=== PATIENT | male | born 1960 | race Caucasian/White ===

== ENCOUNTER 2021-02-10 17:32 | Emergency (ER) | payer MEDICAID ==
[2021-02-10] MEDS ORDERED: ONDANSETRON 4 MG/2 ML VIAL ONE (18:14)
[2021-02-10] MEDS ORDERED: MORPHINE 4 MG/ML SYR ONE (18:14)
--- NOTE | 2021-02-10 19:29 | RAD REPORT ---
EXAM DESCRIPTION: CT - Pelvis Wo Cont - 02/10/2021 6:44 pm CLINICAL HISTORY: pain from fall Fall, trauma, pain COMPARISON: No comparisons TECHNIQUE: All CT scans are performed using dose optimization technique as appropriate and may inclu de automated exposure control or mA/KV adjustment according to patient size. CT pelvis without contrast with sagittal and coronal reformatted images CT thoracic spine without contrast with sagittal and coronal reformatted images CT lumbar spine without contrast with sagittal and coronal reformatted images FINDINGS: Left total hip arthroplasty noted. There is atrophy noted of the left iliopsoas musculatur e relative to the right. A mild acute anterior wedge compression fracture affects the T12 vertebral body. Loss of vertebral dion dy height is estimated at 5-10%. No canal compromise seen. The paraspinal tissues are mildly thickene d. No lumbar spine fracture evident. There is evidence of a calcified disc herniation at L4-5. Chronic b ilateral spondylolysis is also noted L5-S1. No acute fracture of the bony pelvis seen. Sacroiliac joints are symmetric. There is very subtle shanta ical irregularity involving the S4 sacral segment which may represent a minimal sacral fracture. IMPRESSION: Mild acute wedge compression fracture affects the T12 vertebral body. No canal compromis e seen. Subtle fracture likely present involving the S4 sacral segment.
--- NOTE | 2021-02-10 19:42 | RAD REPORT ---
EXAM DESCRIPTION: RAD - Pelvis - 02/10/2021 6:44 pm CLINICAL HISTORY: PAIN COMPARISON: No comparisons FINDINGS: Left total hip arthroplasty is noted. No acute fracture or dislocation seen.
--- NOTE | 2021-02-10 19:43 | RAD REPORT ---
EXAM DESCRIPTION: RAD - Hip Right 2 View - 02/10/2021 6:44 pm CLINICAL HISTORY: PAIN Trauma, pain COMPARISON: No comparisons FINDINGS: No acute fracture or dislocation is seen.
--- NOTE | 2021-02-10 19:57 | ER ---
Nurse's Notes [facility] Name: Efrain Quezada Age: 60 yrs Sex: Male : 1960 Arrival Date: 02/10/2021 Time: 17:38 Bed 6 Private MD: Diagnosis: Fracture of sacrum;Wedge compression fracture of T11-T12 vertebra Presentation: 02/10 17:38 Chief complaint: EMS states: Pt slipped and fell while fishing at the [employer], landed ph on his bottom, denies head injury or LOC, c/o pain to mid back area, tailbone and R hip, hx of slipped disc, occurred at around 1300 today, pt states that he has been able to ambulate. Care prior to arrival: None. Mechanism of Injury: Fall from standing position. Trauma event details: Injury occurred in the [facility], Injury occurred: in a recreational area. Injury occurred: February 10, 2021. 17:38 Acuity: OVI 4 ph 17:38 Method Of Arrival: EMS: [facility] 17:46 Coronavirus screen: Client denies travel out of the [place] in the last 14 days. At this ph time, the client does not indicate any symptoms associated with coronavirus-19. Ebola Screen: No symptoms or risks identified at this time. Initial Sepsis Screen: Does the patient meet any 2 criteria? No. Patient's initial sepsis screen is negative. Does the patient have a suspected source of infection? No. Patient's initial sepsis screen is negative. Risk Assessment: Do you want to hurt yourself or someone else? Patient reports no desire to harm self or others. Onset of symptoms was February 10, 2021. Triage Assessment: 17:46 General: Appears in no apparent distress. uncomfortable, well groomed, Behavior is ph calm, cooperative, appropriate for age. Pain: Complains of pain in lumbar area and sacrum and right hip. Neuro: Level of Consciousness is awake, alert, obeys commands, Oriented to person, place, time, situation. Cardiovascular: Capillary refill < 3 seconds in bilateral fingers Patient's skin is warm and dry. Respiratory: Airway is patent Respiratory effort is even, unlabored, Respiratory pattern is regular, symmetrical. GI: Reports nausea, Patient currently denies abdominal pain, vomiting. Derm: Skin is intact, is healthy with good turgor, Skin is pink, warm \T\ dry. Trauma Activation: Not Applicable Physician: ED Physician; Name: ; Notified At: ; Arrived At: Physician: General Surgeon; Name: ; Notified At: ; Arrived At: Physician: Radiology; Name: ; Notified At: ; Arrived At: Physician: Respiratory; Name: ; Notified At: ; Arrived At: Physician: Lab; Name: ; Notified At: ; Arrived At: Historical: - Allergies: 17:45 PENICILLINS; ph 17:45 Sulfa (Sulfonamide Antibiotics); ph - Home Meds: 17:45 Metoprolol Tartrate Oral [Active]; Lisinopril Oral [Active]; Famotidine Oral [Active]; ph Hydrochlorothiazide Oral [Active]; - PMHx: 17:45 CVA; Hypertension; ph - PSHx: 17:45 L hip replacement; ph - Immunization history:: Adult Immunizations unknown. - Social history:: Smoking status: Patient denies any tobacco usage or history of. Screenin:45 Abuse screen: Denies threats or abuse. Denies injuries from another. Nutritional ph screening: No deficits noted. Tuberculosis screening: No symptoms or risk factors identified. Fall Risk None identified. Assessment: 18:15 General: SEE TRIAGE ASSESSMENT. ph 19:15 Reassessment: Patient appears in no apparent distress at this time. Patient and/or wh family updated on plan of care and expected duration. Pain level reassessed. Patient is alert, oriented x 3, equal unlabored respirations, skin warm/dry/pink. 20:20 Reassessment: Patient appears in no apparent distress at this time. Patient and/or wh family updated on plan of care and expected duration. Pain level reassessed. Patient is alert, oriented x 3, equal unlabored respirations, skin warm/dry/pink. Vital Signs: 17:46 BP 143 / 96; Pulse 102; Resp 18; Temp 97.9; Pulse Ox 97% on R/A; Weight 72.57 kg; ph Height 5 ft. 9 in. (175.26 cm); Pain 7/10; 19:30 BP 125 / 79; Pulse 88; Resp 18; Pulse Ox 98% on R/A; wh 17:46 Body Mass Index 23.63 (72.57 kg, 175.26 cm) ph ED Course: 17:38 Patient arrived in ED. ph 17:40 Imer Schmitt PA is PHCP. cp 17:40 Kimani Aguilar MD is Attending Physician. cp 17:42 Triage completed. ph 17:42 Gertrude Morales RN is Primary Nurse. ph 17:45 Arm band placed on Patient placed in an exam room. ph 17:45 Inserted saline lock: 20 gauge in right antecubital area, using aseptic technique. kj1 17:47 Patient has correct armband on for positive identification. Bed in low position. Call ph light in reach. Side rails up X 1. Pulse ox on. NIBP on. Door closed. Noise minimized. Warm blanket given. 18:43 CT Lumbar Spine Wo Con In Process Unspecified. EDMS 18:43 XRAY Pelvis In Process Unspecified. EDMS 18:43 XRAY Hip RIGHT 2 view In Process Unspecified. EDMS 18:44 CT Thoracic Spine Wo Cont In Process Unspecified. EDMS 18:44 CT Pelvis wo Cont In Process Unspecified. EDMS 20:24 No provider procedures requiring assistance completed. IV discontinued, intact, wh bleeding controlled, No redness/swelling at site. Administered Medications: 18:00 Drug: Zofran (Ondansetron) 4 mg Route: IVP; Site: right antecubital; ph 19:12 Follow up: Response: No adverse reaction ph 18:02 Drug: morphine 4 mg Route: IVP; Site: right antecubital; ph 19:12 Follow up: Response: No adverse reaction; Pain is decreased ph Outcome: 19:56 Discharge ordered by MD. cp 20:25 Discharged to home via wheelchair. 20:25 Condition: stable 20:25 Discharge instructions given to patient, Instructed on discharge instructions, follow up and referral plans. no drinking with medication, no driving heavy equipment, medication usage, POC Demonstrated understanding of instructions, follow-up care, medications, POC Prescriptions given X 1, Pt refused Ibupofen 20:25 Patient left the ED. Signatures: Dispatcher [employer] EDMS Gertrude Morales, RN RN Imer Schmitt PA PA cp Habalo, Winsy, RN RN Kelli Tabares [email or web address]
--- NOTE | 2021-02-10 19:57 | EDPHYS ---
Physician Documentation [facility] Name: Efrain Quezada Age: 60 yrs Sex: Male : 1960 Arrival Date: 02/10/2021 Time: 17:38 Bed 6 Private MD: ED Physician Kimani Aguilar HPI: 02/10 17:50 This 60 yrs old Male presents to ER via EMS with complaints of Fall Injury. cp 17:50 Details of fall: The patient fell from an upright position, while walking. cp 17:50 Onset: The symptoms/episode began/occurred just prior to arrival. Associated injuries: cp The patient sustained upper back injury, pain, tenderness, injury to the low back, pain, tenderness, right hip, painful injury. Severity of symptoms: in the emergency department the symptoms are unchanged, despite EMS interventions. Patient reports he was walking and slipped while finishing. Both legs slipped out from underneath him causing him to land onto buttocks. Historical: - Allergies: 17:45 PENICILLINS; ph 17:45 Sulfa (Sulfonamide Antibiotics); ph - Home Meds: 17:45 Metoprolol Tartrate Oral [Active]; Lisinopril Oral [Active]; Famotidine Oral [Active]; ph Hydrochlorothiazide Oral [Active]; - PMHx: 17:45 CVA; Hypertension; ph - PSHx: 17:45 L hip replacement; ph - Immunization history:: Adult Immunizations unknown. - Social history:: Smoking status: Patient denies any tobacco usage or history of. ROS: 18:00 Constitutional: Negative for body aches, chills, fever, poor PO intake. cp 18:00 Eyes: Negative for injury, pain, redness, and discharge. cp 18:00 Neck: Negative for pain with movement, pain at rest, stiffness, bony tenderness. 18:00 Cardiovascular: Negative for chest pain. 18:00 Respiratory: Negative for cough, shortness of breath, wheezing. 18:00 Abdomen/GI: Negative for abdominal pain, nausea, vomiting, and diarrhea. 18:00 Back: Positive for pain at rest, pain with movement, of the thoracic area, lumbar area and sacrum. 18:00 MS/extremity: Positive for pain, of the right hip, Negative for decreased range of motion, deformity. 18:00 Neuro: Negative for altered mental status, dizziness, headache, loss of consciousness, weakness. 18:00 All other systems are negative. Exam: 18:05 Constitutional: The patient appears in no acute distress, alert, awake, cp non-diaphoretic, non-toxic, well developed, well nourished, uncomfortable. 18:05 Head/Face: Normocephalic, atraumatic. cp 18:05 Neck: C-spine: vertebral tenderness, is not appreciated, crepitus, is not appreciated, ROM/movement: is normal, is supple, without pain, no range of motions limitations. 18:05 Chest/axilla: Inspection: normal, Palpation: is normal, no crepitus, no tenderness. 18:05 Cardiovascular: Rate: tachycardic, Rhythm: regular. 18:05 Respiratory: the patient does not display signs of respiratory distress, Respirations: normal, no use of accessory muscles, no retractions, labored breathing, is not present, Breath sounds: are clear throughout, no decreased breath sounds, no stridor, no wheezing. 18:05 Abdomen/GI: Inspection: abdomen appears normal, Palpation: abdomen is soft and non-tender, in all quadrants. 18:05 Back: pain, that is moderate, ROM is painful, with all movement, vertebral tenderness, is appreciated at T12, L1 and sacrum. 18:05 Musculoskeletal/extremity: Extremities: grossly normal except: noted in the right hip: pain, There is no evidence of decreased ROM, deformity, ROM: limited passive range of motion due to pain, in the right hip. 18:05 Neuro: Orientation: to person, place \T\ time. Mentation: is normal, Motor: moves all fours, strength is normal, Sensation: is normal. Vital Signs: 17:46 BP 143 / 96; Pulse 102; Resp 18; Temp 97.9; Pulse Ox 97% on R/A; Weight 72.57 kg; ph Height 5 ft. 9 in. (175.26 cm); Pain 7/10; 19:30 BP 125 / 79; Pulse 88; Resp 18; Pulse Ox 98% on R/A; wh 17:46 Body Mass Index 23.63 (72.57 kg, 175.26 cm) ph MDM: 17:55 Patient medically screened. cp 19:55 Data reviewed: vital signs, nurses notes, radiologic studies, CT scan, plain films. cp 19:55 Counseling: I had a detailed discussion with the patient and/or guardian regarding: the cp historical points, exam findings, and any diagnostic results supporting the discharge/admit diagnosis, radiology results, the need for outpatient follow up, a family practitioner, to return to the emergency department if symptoms worsen or persist or if there are any questions or concerns that arise at home. Response to treatment: the patient's symptoms have markedly improved after treatment, VSS. Pain markedly improved. Discussed results of radiology studies, and as a result, I will discharge patient. 02/10 17:41 Order name: XRAY Pelvis; Complete Time: 19:52 cp 02/10 17:41 Order name: XRAY Hip RIGHT 2 view; Complete Time: 19:52 cp 02/10 17:56 Order name: CT Lumbar Spine Wo Con cp 02/10 17:56 Order name: CT Thoracic Spine Wo Cont cp 02/10 17:56 Order name: CT Pelvis wo Cont; Complete Time: 19:35 cp 02/10 17:41 Order name: IV; Complete Time: 17:47 cp Administered Medications: 18:00 Drug: Zofran (Ondansetron) 4 mg Route: IVP; Site: right antecubital; ph 19:12 Follow up: Response: No adverse reaction ph 18:02 Drug: morphine 4 mg Route: IVP; Site: right antecubital; ph 19:12 Follow up: Response: No adverse reaction; Pain is decreased ph Disposition: 02/10/21 19:56 Discharged to Home. Impression: Fracture of sacrum, Wedge compression fracture of T11-T12 vertebra. - Condition is Stable. - Discharge Instructions: Spinal Compression Fracture. - Prescriptions for Tylenol- Codeine #3 300-30 mg Oral Tablet - take 2 tablets by ORAL route every 8-12 hours As needed; 20 tablet. Ibuprofen 800 mg Oral Tablet - take 1 tablet by ORAL route every 8 hours As needed take with food; 30 tablet. - Medication Reconciliation Form, Thank You Letter, Antibiotic Education, Prescription Opioid Use form. - Follow up: Private Physician; When: 2 - 3 days; Reason: Recheck today's complaints. - Problem is new. - Symptoms have improved. Addendum: 02/12/2021 05:22 Co-signature as Attending Physician, Kimani Aguilar MD I agree with the assessment and t w4 plan of care. Signatures: Dispatcher [employer] EDWV Gertrude Morales, RN RN Imer Miller PA PA cp Habalo, Winsy RN RN Kimani Aguilar MD MD tw4 Corrections: (The following items were deleted from the chart) 02/10 18:04 17:41 Lumbar Spine 3 Views+[id number] ordered. [facility] EDWV 20:25 19:56 02/10/2021 19:56 Discharged to Home. Impression: Fracture of sacrum; Wedge wh compression fracture of T11-T12 vertebra. Condition is Stable. Forms are Medication Reconciliation Form, Thank You Letter, Antibiotic Education, Prescription Opioid Use. Follow up: Private Physician; When: 2 - 3 days; Reason: Recheck today's complaints. Problem is new. Symptoms have improved. cp
[2021-02-10 21:18] VITALS: TEMP 97.9
[2021-02-10 21:19] VITALS: BP 125/79; O2SAT 98
--- NOTE | 2021-02-13 10:22 | RAD REPORT ---
EXAM DESCRIPTION: CT - Thoracic Spine W/o Cont - 02/10/2021 6:44 pm CLINICAL HISTORY: Pain from fall Fall, trauma, pain COMPARISON: No comparisons TECHNIQUE: All CT scans are performed using dose optimization technique as appropriate and may inclu de automated exposure control or mA/KV adjustment according to patient size. CT pelvis without contrast with sagittal and coronal reformatted images CT thoracic spine without contrast with sagittal and coronal reformatted images CT lumbar spine without contrast with sagittal and coronal reformatted images FINDINGS: Left total hip arthroplasty noted. There is atrophy noted of the left iliopsoas musculatur e relative to the right. A mild acute anterior wedge compression fracture affects the T12 vertebral body. Loss of vertebral dion dy height is estimated at 5-10%. No canal compromise seen. The paraspinal tissues are mildly thickene d. No lumbar spine fracture evident. There is evidence of a calcified disc herniation at L4-5. Chronic b ilateral spondylolysis is also noted L5-S1. No acute fracture of the bony pelvis seen. Sacroiliac joints are symmetric. There is very subtle shanta ical irregularity involving the S4 sacral segment which may represent a minimal sacral fracture. IMPRESSION: Mild acute wedge compression fracture affects the T12 vertebral body. No canal compromis e seen. Subtle fracture likely present involving the S4 sacral segment.
== END 2021-02-10 20:25 | disposition home or self-care (01) ==
LOC: ER 17:32
DX: S32.10XA Unspecified fracture of sacrum, initial encounter for closed fracture (principal); S22.080A Wedge compression fracture of T11-T12 vertebra, initial encounter for closed fracture; W18.39XA Other fall on same level, initial encounter; Y93.01 Activity, walking, marching and hiking; Y92.9 Unspecified place or not applicable; I10 Essential (primary) hypertension; Z88.0 Allergy status to penicillin; Z88.2 Allergy status to sulfonamides; Z86.73 Personal history of transient ischemic attack (TIA), and cerebral infarction without residual deficits; Z96.642 Presence of left artificial hip joint
CPT/HCPCS: 72131; 72128; 72192; 72170; 73502; J2405; 96374; 96375; 99284

== ENCOUNTER 2021-04-14 01:10 | Observation (INO) | payer MEDICAID ==
--- OUTSIDE RECORDS SUMMARY | 2021-04-14 01:17 | XMS REPORT | Continuity of Care Document ---
:1960 Author Organization Formerly [facility] t Address [address] [place] [address] Care Team Providers Name Role Phone Ramírez ALMEIDA APN Primary Care Physician Manoj ESTEVEZ, L Attending Clinician WANDA Attending Clinician Unavailable D'CHICAS Attending Clinician Unavailable KOSCIUK Admitting Clinician Unavailable TARAPASADE Admitting Clinician Unavailable Advance Directives Directive Decision Effective Date Termination Date Comments Sour ce Yes N/A [facility] Problems Condition Condition Condition Status Onset Resolution Last Treating Co mments Source Name Details Category Date Date Treatment Clinician Date Shortness Problem JOHN U of breath [facility] Injury of Problem JOHN U right S [facility] shoulder [facility] th Blister of Problem MAGO TU right S [facility] shoulder Elizabe without th infection Acute hip Problem JOHN U pain [facility] th Chronic Problem [facility] renal S [facility] impairment Elizab e th Hypokalemi Problem MAGO TU a S [facility] th Right Problem [facility]RI[facility]U inguinal S [facility] pain Elizabe th Peripheral Problem MAGO TU vascular S St. disease Elizabe th Hydrocele Problem JOHN U S [facility] th Inguinal Problem [facility] hernia [facility] th Hydrocele Problem JOHN U in adult S [facility] El[facility] th Abnormal Problem [facility] electrocar S St[facility] diography Elizabe th Chronic Problem [facility]RIST[facility] kidney S St[facility] disease Eli Problem Condition JOHN U S - [facility] Allergies, Adverse Reactions, Alerts Allergy Allergy Status Severity Reaction(s) Onset Inactive Treating Comm ents Source Name Type Date Date Clinician Penicill Allergy Active 2018-12 [facility] in to 0-[address] substanc 00:00: Elizabe e 00 Sulfonam Allergy Active 2018-12 [facility]U shaniqua to 0-[address] substanc 00:00: Elizabe e Social History Social Habit Start Date Stop Date Quantity Comments Source Sex Assigned At 1960 [address] 00:00:00 00:00:00 Rhiannon Smoking Status Start Date Stop Date Source Smokes tobacco daily (finding) 2019-11-12 00:49:00 [facility] Medications Ordered Filled Start Stop Current Ordering Indication Dosage Frequency Signature Comments Components Source Medication Medication Date Date Medication? Clinician (SIG) Name Name Albuterol 2018-12 No 2 [facility]RI[facility]U (Proair Hfa 2-[address] Inh) 200 15:10: Elizabe Puff/8.5 Gm 00 AERO Acetaminoph 2018-12 No 1 JOHN U en/Codeine 0-12 S - Phosphate 10:32: [facility] Acetaminoph 2018-12 No 1 JOHN U en/Codeine 0-12 S - Phosphate 10:32: [facility] [facility] Cyclobenzap 2019-0 No 10mg JOHN U rine Hcl 5-12 S - 01:26: [facility] [facility] Cyclobenzap 20190 No 10mg JOHN U rine Hcl 5-12 S - 01:26: [facility] [facility] Hydrochloro 2017-12 No 25mg JOHN U thiazide 2- S 03:28: [facility] Metoprolol 2017-12 No 50mg [facility] Tartrate 2- S 03:28: [facility] Ranitidine 2017-12 No 300mg JOHN U Hcl 2- S 03:28: [facility] [place] [facility] Hydrochloro 2017-12 No 25mg JOHN U thiazide 2- S - 03:28: [facility] Metoprolol 2017-12 No 50mg CH[facility]U Tartrate 01-03 S :28: [facility] [place] [facility] Ranitidine 2017-12 No 300mg JOHN U Hcl 01-03 S :28: [facility] [place] [facility] Hydrochloro No 25mg CH[facility]STU thiazide S - [facility] Metoprolol No 50mg [facility]U Tartrate S - [facility] Ranitidine No 300mg [facility]U Hcl S - [facility] Hydrochloro No 25mg [facility] thiazide S - [facility] Metoprolol No 50mg [facility]U Tartrate S - [facility] Ranitidine No 300mg [facility] Hcl S - [facility] Fenofibrate No 120mg [facility] (Fenoglide) S St. 120 Mg Elizabe TABLET th Hydrochloro No 25mg CHRISTU thiazide S St. (Hydrodiuri Elizabe l) 25 Mg th TAB Lisinopril No 10mg [facility] (Zestril) S St. 10 Mg TAB Elizabe th Metoprolol No 50mg [facility]U Tartrate S St. (Lopressor) Elizabe 50 Mg TAB th Ranitidine No 300mg CHRISTU Hcl S St. (Zantac) Elizabe 300 Mg TAB th Doxycycline No 100mg [facility] Monohydrate S St. (Doxycyclin Elizabe e) 100 Mg th CAPSULE Fenofibrate No 120mg CHRISTU (Fenoglide) S St. 120 Mg Elizabe TABLET th Hydrochloro No 25mg CHRISTU thiazide S St. (Hydrodiuri Elizabe l) 25 Mg th TAB Lisinopril No 10mg CHRISTU (Zestril) S St. 10 Mg TAB Elizabe th Metoprolol No 50mg CHRISTU Tartrate S St. (Lopressor) Elizabe 50 Mg TAB th Ranitidine No 300mg CHRISTU Hcl S St. (Zantac) Elizabe 300 Mg TAB th Vital Signs Vital Name Observation Time Observation Value Comments Source Body Temperature 2019-11-12 16:37:00 98.2 [degF] [facility] [place] Body Temperature 2019-11-12 07:53:00 97.9 [degF] [facility] [place] Weight 2019-11-11 10:00:00 240 [lb_av] [facility] [place] BMI (Body Mass 2019-11-11 10:00:00 35.4 kg/m2 [facility] St. Index) [place] Body Temperature 2019-10-11 16:26:00 98.8 [degF] [facility] Heart Rate 2019-10-11 16:26:00 82 /min [facility] Respiratory rate 2019-10-11 16:26:00 18 /min [facility] BP Systolic 2019-10-11 16:26:00 156 mm[facility]Hg[facility] Di[facility] 2019-10-11 16:26:00 112 mm[Hg] [facility] Heart Rate 2019-10-11 15:50:00 82 /min [facility] Respiratory rate 2019-10-11 15:50:00 18 /min [facility] BP Systolic 2019-10-11 15:50:00 156 mm[Hg] [facility] BP Diastolic 2019-10-11 15:50:00 112 mm[Hg] [facility] Weight 2019-10-11 15:50:00 243 [lb_av] [facility] BMI (Body Mass 2019-10-11 15:50:00 35.9 kg/m2 [facility] Index) [facility] Heart Rate 2019-09-11 10:12:00 50 /min [facility] Respiratory rate 2019-09-11 10:12:00 18 /min [facility] BP Systolic 2019-09-11 10:12:00 124 mm[Hg] [facility] BP Diastolic 2019-09-11 10:12:00 70 mm[Hg] [facility] Body Temperature 2019-09-11 07:55:00 98.2 [degF] [facility] Weight 2019-09-11 07:55:00 250 [lb_av] [facility] BMI (Body Mass 2019-09-11 07:55:00 36.9 kg/m2 [facility] Index) [facility] Procedures Procedure Date / Time Performing Clinician Source Performed Hydrocelectomy 2019-11-11 00:00:[address] [place] X-ray of chest, two views 2019-11-11 00:00:00 [facility] ECG (electrocardiogram) 2019-10-11 00:00:00 [facility] ECG (electrocardiogram) 2019-10-07 00:00:00 [facility] Moderate level 2019-10-07 00:00:00 ARNIE singer established patient [facility] office visit US EXAM SCROTUM 2019-09-15 00:00:00 [facility] VASCULAR STUDY 2019-09-15 00:00:00 [facility] EMERGENCY DEPT VISIT 2019-09-15 00:00:00 [facility] US scrotum and contents 2019-09-15 00:00:00 [facility] Limited duplex scan of 2019-09-15 00:00:00 MAGO OVIEDO [facility] renal artery [facility] ROUTINE VENIPUNCTURE 2019-09-11 00:00:[address] [facility] [address] ABD & PELV W/CONTRAST 2019-09-11 00:00:00 [facility] US EXAM SCROTUM 2019-09-11 00:00:00 [facility] METABOLIC PANEL TOTAL CA 2019-09-11 00:00:00 [facility] URINALYSIS AUTO W/O SCOPE 2019-09-11 00:00[facility] W/AUTO DIFF 2019-09-11 00:00:00 [facility] WBC [facility] VASCULAR STUDY 2019-09-11 00:00:00 ARNIE singer [facility] EMERGENCY DEPT VISIT 2019-09-11 00:00:00 JOSE Abdul [facility] Locm 300-399mg/ml 2019-09-11 00:00:00 ARNIE Abdul iodine,1ml [facility] Computed tomography of 2019-09-11 00:00:00 MAGO Abdul abdomen and pelvis with [facility] contrast US scrotum and contents 2019-09-11 00:00:00 SHERRYI PATRICIA Abdul [facility] Limited duplex scan of 2019-09-11 00:00:00 MAGO Abdul renal artery [facility] Venipuncture 2019-09-10 00:00:00 ARNIE singer [facility] Moderate level 2019-08-30 00:00:00 ARNIE singer established patient [facility] office visit Plan of Care Planned Activity Planned Date Details Comments Source Goal Patient referral [code = SHERRY Abdul [id number] ] [facility] Goal Patient referral [code = SHERRY Abdul [id number] ] [facility] Instructions Chronic Kidney Disease MAGO Abdul (DC) [facility] Instructions Groin Hernia Repair (DC) [facility] SULY [place] Instructions Peripheral Vascular ARNIE Abdul (Arterial) Disease (DC) [facility] Instructions Hernia Repair (DC) ARNIE Abdul [facility] Instructions Hydrocele/Varicocele JOSE Abdul (DC) [facility] Encounters Start End Encounter Admission Attending Care Care Encounter Source Date/Time Date/Time Type Type Clinicians Facility Department ID 2021-03-07 2021-03-07 Prep For BIPIN Aranda [id number] 00:00:00 00:00:00 Surgery Timi Berry SPECIALTY [id number] CARE [id number] CENTER AT [id number] [address] 2021-03-06 2021-03-06 Telephone BIPIN Aranda [id number] 00:00:00 00:00:00 Timi L SPECIALTY [id number] CARE [id number] CENTER AT [id number] [place] [facility] 2021-02-19 2021-02-19 Telephone Manoj [facility] [id number] 00:00:00 00:00:00 Timi L SPECIALTY [id number] CARE [id number] CENTER AT [id number] [place] [facility] 2019-11-11 2019-11-12 Departed EDDIE GAITAN [id number] [facility] 09:20:00 20:05:[address] 2019-11-09 2019-11-09 Registered EDDIE Abdul [id number] [facility] 14:04:00 14:04:[address] 2019-10-11 2019-10-11 Departed ELIZA Abdul [id number] [facility] 15:45:00 16:27:00 Emergency [place] [address] [address] Room [facility] 2019-10-07 2019-10-07 Registered ELIZA Abdul [id number] [facility] 07:53:00 07:53:00 Provider [facility] 03 [facility] 2019-09-15 2019-09-15 Departed ELIZA Abdul [id number] [facility] 13:45:00 15:55:00 Emergency [facility] 84 S - Room [facility] 2019-09-11 2019-09-11 Departed ELIZA Abdul [id number] [facility] 07:53:00 10:35:00 Emergency [facility] 33 S Room [facility] 2019-09-10 2019-09-10 Registered ELIZA Abdul [id number] [facility] 08:16:00 08:16:[address] [facility] 2019-08-30 2019-08-30 Registered ELIZA Abdul [id number] [facility] 08:02:00 08:02:[address] [facility] Results Test Description Test Time Test Comments Results Result Comments Source Automated blood leukocyte count (number/volume) 2019-11-12 0 5:44:00 Test Item Value Reference Range Interpretation Comme nts White Blood Count (test code = 6690-2) 13.9 10*3/uL [facility] automated count (number/volume) 2019-11-12 05:44:00 Test Item Value Reference Range Interpretation Comments Red Blood Count (test code = 4.46 10*6/uL 789-8) [facility] hemoglobin measurement (mass/volume)2019-11-12 05:44:00 Test Item Value Reference Range Interpretation Comments Hemoglobin (test code = 718-7) 13.3 g/dL [facility] ElizabethAutomated blood hematocrit (volume fraction)2019-11-12 05:44:00 Test Item Value Reference Range Interpretation Comments Hematocrit (test code = 4544-3) 41.5 % [facility] ElizabethAutomated erythrocyte mean corpuscular volume (MCV) kuiihpxxqpi2020-16-26 05:44:00 Test Item Value Reference Range Interpretation Comments Mean Corpuscular Volume (test code = 93 fL 787-2) [facility] ElizabethAutomated erythrocyte mean corpuscular hemoglobin (mass per erythrocyte)2019-11-12 05:44:00 Test Item Value Reference Range Interpretation Comments Mean Corpuscular Hemoglobin (test 29.8 pg code = 785-6) [facility] ElizabethAutomated erythrocyte mean corpuscular hemoglobin concentration measurement (mass/[id number] 05:44:00 Test Item Value Reference Range Interpretation Comments Mean Corpuscular Hemoglobin Concent 32.0 g/dL (test code = 786-4) [facility] ElizabethAutomated erythrocyte distribution width [id number] 05:44:00 Test Item Value Reference Range Interpretation Comments Red Cell Distribution Width (test code 13.5 % = 788-0) [facility] ElizabethAutomated blood platelet count (count/volume)2019-11-12 05:44:00 Test Item Value Reference Range Interpretation Comments Platelet Count (test code = 249 10*3/uL 777-3) [facility] ElizabethAutomated blood platelet mean volume [id number] 05:44:00 Test Item Value Reference Range Interpretation Comments Mean Platelet Volume (test code = 10.8 95551-8) [facility]Service comment [id number] 05:44:00 Test Item Value Reference Range Interpretation Comments Manual Differential (test code = ----- 8265-1) [facility] ElizabethManual blood segmented neutrophils/100 leukocytes 2019-11-12 05:44:00 Test Item Value Reference Range Interpretation Comments Neutrophils % (Manual) (test code = 73 % 769-0) [facility] ElizabethManual blood band neutrophils form/100 leukocytes 2019-11-12 05:44:00 Test Item Value Reference Range Interpretation Comments Band Neutrophils % (Manual) (test code 3 % = 764-1) [facility] ElizabethManual blood lymphocytes/100 [id number] 05:44:00 Test Item Value Reference Range Interpretation Comments Lymphocytes % (Manual) (test code = 17 % 737-7) [facility] ElizabethManual blood monocytes/100 [id number] 05:44:00 Test Item Value Reference Range Interpretation Comments Monocytes % (Manual) (test code = 6 % 744-3) [facility] ElizabethManual blood eosinophil count as percentage of total [id number] 05:44:00 Test Item Value Reference Range Interpretation Comments Eosinophils % (Manual) (test code = 1 % 714-6) [facility]Blood platelet detection by light [id number] 05:44:00 Test Item Value Reference Range Interpretation Comments Platelet Estimate (test code = Adequate 9317-9) [facility] ElizabethBlood large platelets detection by light microscopy 2019-11-12 05:44:00 Test Item Value Reference Range Interpretation Comments Large Platelets (test code = 61759-9) Present [facility] ElizabethBlood erythrocyte morphology finding identification 2019-11-12 05:44:00 Test Item Value Reference Range Interpretation Comments Red Blood Cell Morphology (test code = Normal 6742-1) [facility] ElizabethSerum or plasma sodium measurement (moles/volume) 2019-11-12 05:44:00 Test Item Value Reference Range Interpretation Comments Sodium Level (test code = 2951-2) 138 mmol/L [facility] ElizabethSerum or plasma potassium measurement (moles/volume) 2019-11-12 05:44:00 Test Item Value Reference Range Interpretation Comments Potassium Level (test code = 3.6 mmol/L 2823-3) [facility] ElizabethSerum or plasma chloride measurement (moles/volume) 2019-11-12 05:44:00 Test Item Value Reference Range Interpretation Comments Chloride Level (test code = 104 mmol/L 5-0) [facility] or plasma total carbon dioxide measurement (moles/volume)2019-11-12 05:44:00 Test Item Value Reference Range Interpretation Comments Carbon Dioxide Level (test code = 26 mmol/L 8-9) [facility] ElikavyabethSerum or plasma anion gap determination (moles/volume) 2019-11-12 05:44:00 Test Item Value Reference Range Interpretation Comments Anion Gap (test code = 88852-1) 12 [facility] [address] CarmenbethSerum or plasma urea nitrogen measurement (mass/volume) 2019-11-12 05:44:00 Test Item Value Reference Range Interpretation Comments Blood Urea Nitrogen (test code = 23 mg/dL 3094-0) [facility] CarmenbethSerum or plasma creatinine measurement (mass/volume) 2019-11-12 05:44:00 Test Item Value Reference Range Interpretation Comments Creatinine (test code = 2160-0) 1.8 mg/dL [facility] St[facility] CarmenbethGFR estimate [id number] 05:44:00 Test Item Value Reference Range Interpretation Comments Estimat Glomerular Filtration Rate 41 (test code = 77504-4) [facility] ElizabethSerum or plasma glucose measurement (mass/volume) 2019-11-12 05:44:00 Test Item Value Reference Range Interpretation Comments Glucose Level (test code = 2345-7) 111 mg/dL [facility] CarmenbethSerum or plasma calcium measurement (mass/volume) 2019-11-12 05:44:00 Test Item Value Reference Range Interpretation Comments Calcium Level (test code = 03275-9) 8.9 mg/dL [facility] ElizabethAutomated blood leukocyte count (number/volume)2019-11-12 05:44:00 Test Item Value Reference Range Interpretation Comments White Blood Count (test code = 13.9 10*3/uL 6690-2) [facility] ElizabethBlood erythrocytes automated count (number/volume) 2019-11-12 05:44:00 Test Item Value Reference Range Interpretation Comments Red Blood Count (test code = 4.46 10*6/uL 789-8) [facility] ElizabethBlood hemoglobin measurement (mass/volume)2019-11-12 05:44:00 Test Item Value Reference Range Interpretation Comments Hemoglobin (test code = 718-7) 13.3 g/dL [facility] ElizabethAutomated blood hematocrit (volume fraction)2019-11-12 05:44:00 Test Item Value Reference Range Interpretation Comments Hematocrit (test code = 4544-3) 41.5 % [facility] ElizabethAutomated erythrocyte mean corpuscular volume (MCV) [id number] 05:44:00 Test Item Value Reference Range Interpretation Comments Mean Corpuscular Volume (test code = 93 fL 787-2) [facility] ElizabethAutomated erythrocyte mean corpuscular hemoglobin (mass per erythrocyte)2019-11-12 05:44:00 Test Item Value Reference Range Interpretation Comments Mean Corpuscular Hemoglobin (test 29.8 pg code = 785-6) [facility] ElizabethAutomated erythrocyte mean corpuscular hemoglobin concentration measurement (mass/[id number] 05:44:00 Test Item Value Reference Range Interpretation Comments Mean Corpuscular Hemoglobin Concent 32.0 g/dL (test code = 786-4) [facility] ElizabethAutomated erythrocyte distribution width [id number] 05:44:00 Test Item Value Reference Range Interpretation Comments Red Cell Distribution Width (test code 13.5 % = 788-0) [facility] ElizabethAutomated blood platelet count (count/volume)2019-11-12 05:44:00 Test Item Value Reference Range Interpretation Comments Platelet Count (test code = 249 10*3/uL 777-3) [facility] ElizabethAutomated blood platelet mean volume [id number] 05:44:00 Test Item Value Reference Range Interpretation Comments Mean Platelet Volume (test code = 10.8 41784-7) [facility] Raquelervice comment 05:44:00 Test Item Value Reference Range Interpretation Comments Manual Differential (test code = ----- 8265-1) [facility] RhiannonManual blood segmented neutrophils/100 leukocytes 2019-11-12 05:44:00 Test Item Value Reference Range Interpretation Comments Neutrophils % (Manual) (test code = 73 % 769-0) [facility] ElikavyabemelonieManual blood band neutrophils form/100 leukocytes 2019-11-12 05:44:00 Test Item Value Reference Range Interpretation Comments Band Neutrophils % (Manual) (test code 3 % = 764-1) [facility] ElirashawnManual blood lymphocytes/100 [id number] 05:44:00 Test Item Value Reference Range Interpretation Comments Lymphocytes % (Manual) (test code = 17 % 737-7) [facility] ElikavyabemelonieManual blood monocytes/100 [id number] 05:44:00 Test Item Value Reference Range Interpretation Comments Monocytes % (Manual) (test code = 6 % 744-3) [facility] ElirashawnManual blood eosinophil count as percentage of total [id number] 05:44:00 Test Item Value Reference Range Interpretation Comments Eosinophils % (Manual) (test code = 1 % 714-6) [facility] RhiannonBlood platelet detection by light [id number] 05:44:00 Test Item Value Reference Range Interpretation Comments Platelet Estimate (test code = Adequate 9317-9) [facility] ElirashawnBlood large platelets detection by light microscopy 2019-11-12 05:44:00 Test Item Value Reference Range Interpretation Comments Large Platelets (test code = 44012-8) Present [facility] RhiannonBlood erythrocyte morphology finding identification 2019-11-12 05:44:00 Test Item Value Reference Range Interpretation Comments Red Blood Cell Morphology (test code = Normal 6742-1) [facility]NIE [facility]. Raquelerum or plasma sodium measurement (moles/volume) 2019-11-12 05:44:00 Test Item Value Reference Range Interpretation Comments Sodium Level (test code = 2951-2) 138 mmol/L [facility] ElizabethSerum or plasma potassium measurement (moles/volume) 2019-11-12 05:44:00 Test Item Value Reference Range Interpretation Comments Potassium Level (test code = 3.6 mmol/L 2823-3) [facility] ElizabethSerum or plasma chloride measurement (moles/volume) 2019-11-12 05:44:00 Test Item Value Reference Range Interpretation Comments Chloride Level (test code = 104 mmol/L 5-0) [facility] ElizabethSerum or plasma total carbon dioxide measurement (moles/volume)2019-11-12 05:44:00 Test Item Value Reference Range Interpretation Comments Carbon Dioxide Level (test code = 26 mmol/L 2027-9) [facility] ElizabethSerum or plasma anion gap determination (moles/volume) 2019-11-12 05:44:00 Test Item Value Reference Range Interpretation Comments Anion Gap (test code = 85295-8) [address] [facility] [address] ElikavyabethSerum or plasma urea nitrogen measurement (mass/volume) 2019-11-12 05:44:00 Test Item Value Reference Range Interpretation Comments Blood Urea Nitrogen (test code = 23 mg/dL 3094-0) [facility] CarmenbethSerum or plasma creatinine measurement (mass/volume) 2019-11-12 05:44:00 Test Item Value Reference Range Interpretation Comments Creatinine (test code = 2160-0) 1.8 mg/dL [facility]. MayelintrishGFR estimate [id number] 05:44:00 Test Item Value Reference Range Interpretation Comments Estimat Glomerular Filtration Rate 41 (test code = 56418-8) [facility] ElizabethSerum or plasma glucose measurement (mass/volume) 2019-11-12 05:44:00 Test Item Value Reference Range Interpretation Comments Glucose Level (test code = 2345-7) 111 mg/dL [facility] ElizabethSerum or plasma calcium measurement (mass/volume) 2019-11-12 05:44:00 Test Item Value Reference Range Interpretation Comments Calcium Level (test code = 18516-8) 8.9 mg/dL [facility] St[facility] CarmencherelleProthrombin time (PT) in platelet poor [id number] 14:35:00 Test Item Value Reference Range Interpretation Comments Prothrombin Time (test code = 5902-2) 11.1 s ARNIE Marshall. Luis EnriquethINR in Platelet poor plasma by Coagulation [id number] 14:35:00 Test Item Value Reference Range Interpretation Comments Prothromb Time International 1.0 {ratio} Ratio (test code = 6301-6) [facility] ElikavyabethPlasma partial thromboplastin time (PTT)2019-11-09 14:35:00 Test Item Value Reference Range Interpretation Comments Activated Partial Thromboplast Time 29.6 s (test code = 44525-5) [facility] ElizabethSerum or plasma urea nitrogen/creatinine mass ratio 2019-11-09 14:35:00 Test Item Value Reference Range Interpretation Comments BUN/Creatinine Ratio (test code = 13 3097-3) [facility] CarmenbethOsmolality of Serum or Plasma by [id number] 14:35:00 Test Item Value Reference Range Interpretation Comments Calculated Osmolality (test code 278 mosm/kg = 56419-5) [facility] total bilirubin measurement (mass/volume) 2019-11-09 14:35:00 Test Item Value Reference Range Interpretation Comments Total Bilirubin (test code = 0.5 mg/dL 1975-2) [facility] aspartate aminotransferase measurement (enzymatic activity/volume)2019-11-09 14:35:00 Test Item Value Reference Range Interpretation Comments Aspartate Amino Transf (AST/SGOT) 18 U/L (test code = 1920-8) [facility] alanine aminotransferase measurement (enzymatic activity/volume)2019-11-09 14:35:00 Test Item Value Reference Range Interpretation Comments Alanine Aminotransferase (ALT/SGPT) 17 U/L (test code = 1742-6) [facility] protein measurement (mass/volume) 2019-11-09 14:35:00 Test Item Value Reference Range Interpretation Comments Total Protein (test code = 2885-2) 7.7 g/dL [facility] albumin measurement (mass/volume) 2019-11-09 14:35:00 Test Item Value Reference Range Interpretation Comments Albumin (test code = 1751-7) 4.3 g/dL [facility] globulin measurement by calculation (mass/volume) 2019-11-09 14:35:00 Test Item Value Reference Range Interpretation Comments Globulin (test code = 49522-5) 3.4 g/dL [facility] albumin/globulin mass [id number] 14:35:00 Test Item Value Reference Range Interpretation Comments Albumin/Globulin Ratio (test code = 1.3 1759-0) [facility] alkaline phosphatase measurement (enzymatic activity/volume)2019-11-09 14:35:00 Test Item Value Reference Range Interpretation Comments Alkaline Phosphatase (test code = 54 U/L 6768-6) [facility]th[facility] (PT) in platelet poor [id number] 14:35:00 Test Item Value Reference Range Interpretation Comments Prothrombin Time (test code = 5902-2) 11.[address] [facility] in Platelet poor plasma by Coagulation [id number] 14:35:00 Test Item Value Reference Range Interpretation Comments Prothromb Time International 1.0 {ratio} Ratio (test code = 6301-6) [facility] partial thromboplastin time (PTT)2019-11-09 14:35:00 Test Item Value Reference Range Interpretation Comments Activated Partial Thromboplast Time 29.6 s (test code = 77921-6) [facility] urea nitrogen/creatinine mass ratio 2019-11-09 14:35:00 Test Item Value Reference Range Interpretation Comments BUN/Creatinine Ratio (test code = 13 3097-3) [facility]Osmolality of Serum or Plasma by [id number] 14:35:00 Test Item Value Reference Range Interpretation Comments Calculated Osmolality (test code 278 mosm/kg = 33099-1) [facility] total bilirubin measurement (mass/volume) 2019-11-09 14:35:00 Test Item Value Reference Range Interpretation Comments Total Bilirubin (test code = 0.5 mg/dL 1975-2) [facility] aspartate aminotransferase measurement (enzymatic activity/volume)2019-11-09 14:35:00 Test Item Value Reference Range Interpretation Comments Aspartate Amino Transf (AST/SGOT) 18 U/L (test code = 1920-8) [facility] alanine aminotransferase measurement (enzymatic activity/volume)2019-11-09 14:35:00 Test Item Value Reference Range Interpretation Comments Alanine Aminotransferase (ALT/SGPT) 17 U/L (test code = 1742-6) [facility] or plasma protein measurement (mass/volume) 2019-11-09 14:35:00 Test Item Value Reference Range Interpretation Comments Total Protein (test code = 2885-2) 7.7 g/dL [facility]er[facility] or plasma albumin measurement (mass/volume) 2019-11-09 14:35:00 Test Item Value Reference Range Interpretation Comments Albumin (test code = 1751-7) 4.3 g/dL [facility]. [facility] globulin measurement by calculation (mass/volume) 2019-11-09 14:35:00 Test Item Value Reference Range Interpretation Comments Globulin (test code = 15007-0) 3.4 g/dL [facility] albumin/globulin mass [id number] 14:35:00 Test Item Value Reference Range Interpretation Comments Albumin/Globulin Ratio (test code = 1.3 1759-0) [facility] plasma alkaline phosphatase measurement (enzymatic activity/volume)2019-11-09 14:35:00 Test Item Value Reference Range Interpretation Comments Alkaline Phosphatase (test code = 54 U/L 6768-6) [facility] trop[facility] I measurement (mass/volume) 2019-10-11 16:08:00 Test Item Value Reference Range Interpretation Comments Bedside Troponin I (test code = 0.00 ng/mL 98140-4) [facility] SCROTUM (TESTES)2019-09-15 08:32:52ER 11 Procedure: US SCROTUM (TESTES)Order Date: 09/14/2019 8:19 PMOrdering Provider: ANDREY Vasquezinical Indication: [id number]: Torsion of epididymisComparison: December 30, 2013Technique: Real-time ultrasonography was obtained of the scrotum andrepresentative images were recorded.Findings:The right testicle is normal in size and echogenicity. There are no intrinsictesticular masses. There is normal arterial flow in the right testicle.The right epididymus is normal in size, echogenicity, and blood flow.There are no masses.A large complex hydrocele with echogenic debrisThere is no varicocele.The left testicle is normal in size and echogenicity. There are no intrinsictesticular masses. There is normal arterial flow in the left testicle.The left epididymus is normal in size, echogenicity, and blood flow.There are no masses.There is a small hydrocele.There is no varicocele.Impression:1. No intrinsic testicular masses.2. Normal arterial flow to each testicle.3. Large complex right hydrocele withechogenic debris.4. Small left hydrocele.5. No other significant findings.This final report was elect ronically signed by Dr Vinh Mora MD 09/15/20198:26 AMDictated By: VINH MORA.Date: 09/15/2019 08:26Urinalysis specimen collection [id number] 08:32:00 Test Item Value Reference Range Interpretation Comments Urine Source (test code = 76617-3) [facility] by [id number] 08:32:00 Test Item Value Reference Range Interpretation Comments Urine Color (test code = 31593-8) Lt Yellow [facility] HospitalU[facility] clarity [id number] 08:32:00 Test Item Value Reference Range Interpretation Comments Urine Appearance (test code = 89608-1) Clear [facility] pH measurement by automated test strip 2019-09-11 08:32:00 Test Item Value Reference Range Interpretation Comments Urine pH (test code = 98580-1) 6.0 [facility] Automated test [id number] 08:32:00 Test Item Value Reference Range Interpretation Comments Urine Specific [place] (test code = 1.016 26980-4) [facility] protein measurement by automated test strip (mass/volume)2019-09-11 08:32:00 Test Item Value Reference Range Interpretation Comments Urine Protein (test code = Negative mg/dL 48385-6) [facility] glucose measurement by automated test strip (mass/volume)2019-09-11 08:32:00 Test Item Value Reference Range Interpretation Comments Urine Glucose (UA) (test code Negative mg/dL = 44534-3) [facility] ketones measurement by automated test strip (mass/volume)2019-09-11 08:32:00 Test Item Value Reference Range Interpretation Comments Urine Ketones (test code = Negative mg/dL 74735-3) [facility] erythrocytes count by automated test strip (number/volume)2019-09-11 08:32:00 Test Item Value Reference Range Interpretation Comments Urine Occult Blood (test code = Negative 31398-2) [facility] nitrite detection by automated test [id number] 08:32:00 Test Item Value Reference Range Interpretation Comments Urine Nitrite (test code = 26863-8) Negative [facility] total bilirubin measurement by automated test strip (mass/volume)2019-09-11 08:32:00 Test Item Value Reference Range Interpretation Comments Urine Bilirubin (test code = Negative mg/dL 48831-2) [facility] urobilinogen measurement by automated test strip (mass/volume)2019-09-11 08:32:00 Test Item Value Reference Range Interpretation Comments Urine Urobilinogen (test code Negative mg/dL = 65308-5) [facility] leukocytes count by automated test strip (number/volume)2019-09-11 08:32:00 Test Item Value Reference Range Interpretation Comments Urine Leukocyte Esterase Negative {Atif}/uL (test code = 85022-1) [facility] HospitalMicroscopic examination of [id number] 08:32:00 Test Item Value Reference Range Interpretation Comments Microscopic Urinalysis (T) (test code Not Ind = 28981-8) [facility] 08:[facility] Test Item Value Reference Range Interpretation Comments Urinalysis Comment (test code = 8262-8) * [facility] HospitalUrinalysis specimen collection method 2019-09-11 08:32:00 Test Item Value Reference Range Interpretation Comments Urine Source (test code = 89878-0) URINE [facility] HospitalColor of Urine by [id number] 08:32:00 Test Item Value Reference Range Interpretation Comments Urine Color (test code = 05757-7) Lt Yellow [facility] clarity [id number] 08:32:00 Test Item Value Reference Range Interpretation Comments Urine Appearance (test code = 61115-4) Clear [facility] pH measurement by automated test strip 2019-09-11 08:32:00 Test Item Value Reference Range Interpretation Comments Urine pH (test code = 50854-5) 6.0 [facility] by Automated test [id number] 08:32:00 Test Item Value Reference Range Interpretation Comments Urine Specific [place] (test code = 1.016 81399-7) [facility] protein measurement by automated test strip (mass/volume)2019-09-11 08:32:00 Test Item Value Reference Range Interpretation Comments Urine Protein (test code = 94605-3) Negative [facility] glucose measurement by automated test strip (mass/volume)2019-09-11 08:32:00 Test Item Value Reference Range Interpretation Comments Urine Glucose (UA) (test code = Negative 77542-3) [facility] ketones measurement by automated test strip (mass/volume)2019-09-11 08:32:00 Test Item Value Reference Range Interpretation Comments Urine Ketones (test code = 63641-4) Negative [facility] erythrocytes count by automated test strip (number/volume)2019-09-11 08:32:00 Test Item Value Reference Range Interpretation Comments Urine Occult Blood (test code = Negative 23723-5) [facility] nitrite detection by automated test [id number] 08:32:00 Test Item Value Reference Range Interpretation Comments Urine Nitrite (test code = 08506-1) Negative [facility] total bilirubin measurement by automated test strip (mass/volume)2019-09-11 08:32:00 Test Item Value Reference Range Interpretation Comments Urine Bilirubin (test code = Negative 18912-8) [facility] urobilinogen measurement by automated test strip (mass/volume)2019-09-11 08:32:00 Test Item Value Reference Range Interpretation Comments Urine Urobilinogen (test code = Negative 32000-8) [facility] HospitalU[facility] leukocytes count by automated test strip (number/volume)2019-09-11 08:32:00 Test Item Value Reference Range Interpretation Comments Urine Leukocyte Esterase (test code Negative = 01744-6) [facility] HospitalMicroscopic examination of [id number] 08:32:00 Test Item Value Reference Range Interpretation Comments Microscopic Urinalysis (T) (test code Not Ind = 63435-2) [facility] comment 08:32:00 Test Item Value Reference Range Interpretation Comments Urinalysis Comment (test code = 8262-8) * [facility] HospitalAutomated blood eosinophil [id number] 08:30:00 Test Item Value Reference Range Interpretation Comments Eosinophils # (Auto) (test code = 0.3 10*3/uL 711-2) [facility] HospitalAutomated blood basophil count (number/volume)2019-09-11 08:30:00 Test Item Value Reference Range Interpretation Comments Basophils # (Auto) (test code = 0.1 10*3/uL 704-7) [facility] comment 08:30:00 Test Item Value Reference Range Interpretation Comments Manual Differential (test code = Not Ind 8265-1) [facility] or plasma sodium measurement (moles/volume)2019-09-11 08:30:00 Test Item Value Reference Range Interpretation Comments Sodium Level (test code = 2951-2) 138 mmol/L [facility] potassium measurement (moles/volume)2019-09-11 08:30:00 Test Item Value Reference Range Interpretation Comments Potassium Level (test code = 3.8 mmol/L 2823-3) [facility] chloride measurement (moles/volume)2019-09-11 08:30:00 Test Item Value Reference Range Interpretation Comments Chloride Level (test code = 103 mmol/L 2074-0) [facility] total carbon dioxide measurement (moles/volume)2019-09-11 08:30:00 Test Item Value Reference Range Interpretation Comments Carbon Dioxide Level (test code = 24 mmol/L 2028-08) [facility] or plasma anion gap determination (moles/volume)2019-09-11 08:30:00 Test Item Value Reference Range Interpretation Comments Anion Gap (test code = 24115-2) 15 [facility] urea nitrogen measurement (mass/volume)2019-09-11 08:30:00 Test Item Value Reference Range Interpretation Comments Blood Urea Nitrogen (test code = 19 mg/dL 3094-0) [facility] or plasma creatinine measurement (mass/volume)2019-09-11 08:30:00 Test Item Value Reference Range Interpretation Comments Creatinine (test code = 2160-0) 1.9 mg/dL [facility] HospitalGFR estimate [id number] 08:30:00 Test Item Value Reference Range Interpretation Comments Estimat Glomerular Filtration Rate 39 (test code = 64033-0) [facility] or plasma urea nitrogen/creatinine mass [id number] 08:30:00 Test Item Value Reference Range Interpretation Comments BUN/Creatinine Ratio (test code = 10 3097-3) [facility] or plasma glucose measurement (mass/volume)2019-09-11 08:30:00 Test Item Value Reference Range Interpretation Comments Glucose Level (test code = 2345-7) 100 mg/dL [facility] HospitalOsmolality of Serum or Plasma by calculation 2019-09-11 08:30:00 Test Item Value Reference Range Interpretation Comments Calculated Osmolality (test code 278 mosm/kg = 06431-0) [facility] or plasma calcium measurement (mass/volume)2019-09-11 08:30:00 Test Item Value Reference Range Interpretation Comments Calcium Level (test code = 39059-6) 9.5 mg/dL [facility] HospitalAutomated blood leukocyte count (number/volume)2019-09-11 08:30:00 Test Item Value Reference Range Interpretation Comments White Blood Count (test code = 6690-2) 8.2 [facility] erythrocytes automated count (number/volume)2019-09-11 08:30:00 Test Item Value Reference Range Interpretation Comments Red Blood Count (test code = 789-8) [facility]98 [facility] (mass/volume) 2019-09-11 08:30:00 Test Item Value Reference Range Interpretation Comments Hemoglobin (test code = 718-7) 15.2 [facility] HospitalAutomated blood hematocrit (volume fraction) 2019-09-11 08:30:00 Test Item Value Reference Range Interpretation Comments Hematocrit (test code = 4544-3) 45.6 [facility] HospitalAutomated erythrocyte mean corpuscular volume (MCV) [id number] 08:30:00 Test Item Value Reference Range Interpretation Comments Mean Corpuscular Volume (test code = 91.6 787-2) [facility] HospitalAutomated erythrocyte mean corpuscular hemoglobin (mass per erythrocyte)2019-09-11 08:30:00 Test Item Value Reference Range Interpretation Comments Mean Corpuscular Hemoglobin (test code 30.5 = 785-6) [facility] HospitalAutomated erythrocyte mean corpuscular hemoglobin concentration measurement (mass/volume)2019-09-11 08:30:00 Test Item Value Reference Range Interpretation Comments Mean Corpuscular Hemoglobin Concent 33.3 (test code = 786-4) [facility] HospitalAutomated erythrocyte distribution width [id number] 08:30:00 Test Item Value Reference Range Interpretation Comments Red Cell Distribution Width (test code 14.3 = 788-0) [facility] count (count/volume) 2019-09-11 08:30:00 Test Item Value Reference Range Interpretation Comments Platelet Count (test code = 777-3) 287 [facility] mean volume [id number] 08:30:00 Test Item Value Reference Range Interpretation Comments Mean Platelet Volume (test code = 10.9 46363-8) [facility] neutrophil count as percentage of total [id number] 08:30:00 Test Item Value Reference Range Interpretation Comments Neutrophils (%) (Auto) (test code = 49 770-8) [facility] HospitalAutom[facility] blood lymphocyte count as percentage of total iumhzbbghn2479-56-28 08:30:00 Test Item Value Reference Range Interpretation Comments Lymphocytes (%) (Auto) (test code = 36 736-9) [facility]Autom[facility] blood monocyte count as percentage of total jspmkukzwr7965-32-21 08:30:00 Test Item Value Reference Range Interpretation Comments Monocytes (%) (Auto) (test code = 10 5905-5) [facility] HospitalAutom[facility] blood eosinophil count as percentage of total [id number] 08:30:00 Test Item Value Reference Range Interpretation Comments Eosinophils (%) (Auto) (test code = 3 713-8) [facility] basophil count as percentage of total [id number] 08:30:00 Test Item Value Reference Range Interpretation Comments Basophils (%) (Auto) (test code = 1 706-2) [facility] count (number/volume)2019-09-11 08:30:00 Test Item Value Reference Range Interpretation Comments Neutrophils # (Auto) (test code = 4.0 751-8) [facility] lymphocyte count (number/volume)2019-09-11 08:30:00 Test Item Value Reference Range Interpretation Comments Lymphocytes # (Auto) (test code = 3.0 731-0) [facility] monocytes automated count (number/volume)2019-09-11 08:30:00 Test Item Value Reference Range Interpretation Comments Monocytes # (Auto) (test code = 742-7) 0.8 [facility] HospitalAutom[facility] blood eosinophil [id number] 08:30:00 Test Item Value Reference Range Interpretation Comments Eosinophils # (Auto) (test code = 0.3 711-2) [facility]Autom[facility] blood basophil count (number/volume)2019-09-11 08:30:00 Test Item Value Reference Range Interpretation Comments Basophils # (Auto) (test code = 704-7) 0.1 [facility] [id number] 08:30:00 Test Item Value Reference Range Interpretation Comments Manual Differential (test code = Not Ind 8265-1) [facility] sodium measurement (moles/volume)2019-09-11 08:30:00 Test Item Value Reference Range Interpretation Comments Sodium Level (test code = 2951-2) 138 [facility] plasma potassium measurement (moles/volume)2019-09-11 08:30:00 Test Item Value Reference Range Interpretation Comments Potassium Level (test code = 2823-3) 3.8 [facility] plasma chloride measurement (moles/volume)2019-09-11 08:30:00 Test Item Value Reference Range Interpretation Comments Chloride Level (test code = 2075-0) 103 [facility] plasma total carbon dioxide measurement (moles/volume)2019-09-11 08:30:00 Test Item Value Reference Range Interpretation Comments Carbon Dioxide Level (test code = 24 2028-9) [facility] anion gap determination (moles/volume)2019-09-11 08:30:00 Test Item Value Reference Range Interpretation Comments Anion Gap (test code = 30040-0) 15 [facility] plasma urea nitrogen measurement (mass/volume)2019-09-11 08:30:00 Test Item Value Reference Range Interpretation Comments Blood Urea Nitrogen (test code = 19 3094-0) [facility] or plasma creatinine measurement (mass/volume)2019-09-11 08:30:00 Test Item Value Reference Range Interpretation Comments Creatinine (test code = 2160-0) 1.9 [facility]GFR [facility] [id number] 08:30:00 Test Item Value Reference Range Interpretation Comments Estimat Glomerular Filtration Rate 39 (test code = 77397-7) [facility] or plasma urea nitrogen/creatinine mass [id number] 08:30:00 Test Item Value Reference Range Interpretation Comments BUN/Creatinine Ratio (test code = 10 3097-3) [facility] glucose measurement (mass/volume)2019-09-11 08:30:00 Test Item Value Reference Range Interpretation Comments Glucose Level (test code = 2345-7) 100 [facility] HospitalOsmolality of Serum or Plasma by calculation 2019-09-11 08:30:00 Test Item Value Reference Range Interpretation Comments Calculated Osmolality (test code = 278 53901-3) [facility] calcium measurement (mass/volume)2019-09-11 08:30:00 Test Item Value Reference Range Interpretation Comments Calcium Level (test code = 98775-0) 9.5 [facility] HospitalAutomated blood leukocyte count (number/volume)2019-09-11 08:30:00 Test Item Value Reference Range Interpretation Comments White Blood Count (test code = 8.2 10*3/uL 6690-2) [facility] erythrocytes automated count (number/volume)2019-09-11 08:30:00 Test Item Value Reference Range Interpretation Comments Red Blood Count (test code = 4.98 10*6/uL 789-8) [facility] (mass/volume) 2019-09-11 08:30:00 Test Item Value Reference Range Interpretation Comments Hemoglobin (test code = 718-7) 15.2 g/dL [facility] hematocrit (volume fraction) 2019-09-11 08:30:00 Test Item Value Reference Range Interpretation Comments Hematocrit (test code = 4544-3) 45.6 % [facility] HospitalAutomated erythrocyte mean corpuscular volume (MCV) [id number] 08:30:00 Test Item Value Reference Range Interpretation Comments Mean Corpuscular Volume (test code = 91.6 fL 787-2) [facility] HospitalAutom[facility] erythrocyte mean corpuscular hemoglobin (mass per erythrocyte)2019-09-11 08:30:00 Test Item Value Reference Range Interpretation Comments Mean Corpuscular Hemoglobin (test 30.5 pg code = 785-6) [facility] HospitalAutomated erythrocyte mean corpuscular hemoglobin concentration measurement (mass/[id number] 08:30:00 Test Item Value Reference Range Interpretation Comments Mean Corpuscular Hemoglobin Concent 33.3 g/dL (test code = 786-4) [facility] width [id number] 08:30:00 Test Item Value Reference Range Interpretation Comments Red Cell Distribution Width (test code 14.3 % = 788-0) [facility] blood platelet count (count/volume) 2019-09-11 08:30:00 Test Item Value Reference Range Interpretation Comments Platelet Count (test code = 287 10*3/uL 777-3) [facility] blood platelet mean volume bttoazqifbv6834-59-30 08:30:00 Test Item Value Reference Range Interpretation Comments Mean Platelet Volume (test code = 10.9 fL 69090-4) [facility] blood neutrophil count as percentage of total zvbwjphwdr2762-74-54 08:30:00 Test Item Value Reference Range Interpretation Comments Neutrophils (%) (Auto) (test code = 49 % 770-8) [facility] blood lymphocyte count as percentage of total pclutjzlvb1297-92-13 08:30:00 Test Item Value Reference Range Interpretation Comments Lymphocytes (%) (Auto) (test code = 36 % 736-9) [facility] blood monocyte count as percentage of total [id number] 08:30:00 Test Item Value Reference Range Interpretation Comments Monocytes (%) (Auto) (test code = 10 % 5905-5) [facility] blood eosinophil count as percentage of total [id number] 08:30:00 Test Item Value Reference Range Interpretation Comments Eosinophils (%) (Auto) (test code = 3 % 713-8) [facility] percentage of total [id number] 08:30:00 Test Item Value Reference Range Interpretation Comments Basophils (%) (Auto) (test code = 1 % 706-2) [facility] blood neutrophil count (number/volume)2019-09-11 08:30:00 Test Item Value Reference Range Interpretation Comments Neutrophils # (Auto) (test code = 4.0 10*3/uL 751-8) [facility] (number/volume)2019-09-11 08:30:00 Test Item Value Reference Range Interpretation Comments Lymphocytes # (Auto) (test code = 3.0 10*3/uL 731-0) [facility] count (number/volume)2019-09-11 08:30:00 Test Item Value Reference Range Interpretation Comments Monocytes # (Auto) (test code = 0.8 10*3/uL 742-7) [facility] (mass/volume)2019-09-10 08:48:00 Test Item Value Reference Range Interpretation Comments Cholesterol Level (test code = 2093-3) 165 [facility] triglyceride measurement (mass/volume)2019-09-10 08:48:00 Test Item Value Reference Range Interpretation Comments Triglycerides Level (test code = 216 2571-8) [facility] in HDL measurement (mass/volume)2019-09-10 08:48:00 Test Item Value Reference Range Interpretation Comments HDL Cholesterol (test code = 2085-9) 33 [facility] in LDL measurement by calculation (mass/volume)2019-09-10 08:48:00 Test Item Value Reference Range Interpretation Comments LDL Cholesterol (test code = 26166-1) 89 [facility] total cholesterol/high density lipoprotein (HDL) cholesterol mass [id number] 08:48:00 Test Item Value Reference Range Interpretation Comments Cholesterol/HDL Ratio (test code = 5.0 9830-1) [facility] low density lipoprotein (LDL) cholesterol/high density lipoprotein (HDL) cholesterolmass [id number] 08:48:00 Test Item Value Reference Range Interpretation Comments Cholesterol Ratio (LDL/HDL) (test code 2.7 = 97581-4) [facility] total bilirubin measurement (mass/volume)2019-08-30 09:27:00 Test Item Value Reference Range Interpretation Comments Total Bilirubin (test code = 1975-2) 0.7 [facility] aspartate aminotransferase measurement (enzymatic activity/volume)2019-08-30 09:27:00 Test Item Value Reference Range Interpretation Comments Aspartate Amino Transf (AST/SGOT) (test 20 code = 1920-8) [facility] or plasma alanine aminotransferase measurement (enzymatic activity/volume)2019-08-30 09:27:00 Test Item Value Reference Range Interpretation Comments Alanine Aminotransferase (ALT/SGPT) 20 (test code = 1742-6) [facility] protein measurement (mass/volume)2019-08-30 09:27:00 Test Item Value Reference Range Interpretation Comments Total Protein (test code = 2885-2) 7.3 [facility] albumin measurement (mass/volume)2019-08-30 09:27:00 Test Item Value Reference Range Interpretation Comments Albumin (test code = 1751-7) 4.3 [facility] globulin measurement by calculation (mass/volume)2019-08-30 09:27:00 Test Item Value Reference Range Interpretation Comments Globulin (test code = 03337-6) 3.0 [facility] or plasma albumin/globulin mass ratio 2019-08-30 09:27:00 Test Item Value Reference Range Interpretation Comments Albumin/Globulin Ratio (test code = 1.4 1759-0) [facility] or plasma alkaline phosphatase measurement (enzymatic activity/volume)2019-08-30 09:27:00 Test Item Value Reference Range Interpretation Comments Alkaline Phosphatase (test code = 62 6768-6) [facility]2017-06-27 08:57:00 Test Item Value Reference Range Interpretation Comments WBC (test code = WBC) 13.6 k/ul 4.8-10.8 H RBC (test code = RBC) 5.02 Millions/ul 4.70-6.10 Hemoglobin (test code = HGB) 15.1 gm/dl 14.0-18.0 Hematocrit (test code = HCT) 44.4 % 42.0-50.0 MCV (test code = MCV) 88.4 fL 80.0-94.0 MCH (test code = MCH) 30.1 pg 27.0-31.0 MCHC (test code = MCHC) 34.1 gm/dl 33.0-37.0 RDW (test code = RDWVC) 13.5 % 11.5-14.5 Platelet (test code = PLT) 295 10\\S\\3/ul 130-400 MPV (test code = MPV) 8.3 fL 7.4-10.4 THIS IS A HEMOGRAM [id number] 08:52:00 Test Item Value Reference Range Interpretation Comments Glucose (test code 104 mg/dl 75-110 = GLU) BUN (test code = 16.0 mg/dl 6.0-17.0 BUN) Creatinine (test 1.3 mg/dl 0.4-1.2 H code = CREA) Sodium (test code = 143 mmol/l 137-145 NA) Potassium (test 3.9 mmol/l 3.5-5.0 code = K) Chloride (test code 103 mmol/l 98-107 = CL) CO2 (test code = 28 mmol/l 22-30 CO2) Calcium (test code 9.8 mg/dl 8.4-10.2 = CALC) EGFR if >60 Iranian (test code mL/min/1.73m\\ = EGFRAA) S\\2 EGFR if Non- >60 Estimate d Glomerular Iranian (test code mL/min/1.73m\\ Filtrat ion Rate (eGFR) = EGFRNA) S\\2 Reference Inter vals Decision Points for 18 years and older and average body ma ss: >= 60 Does not exc lude kidney disease. 30 - 59 Suggests modera te chronic kidney disease and indicat es the need for furthe r investigation including asses sment of proteinuria and cardiovascular factors. < 30 Usually in dicates a need for refe rral for assessment and management of c hronic kidney failure. [id number] 05:43:00 Test Item Value Reference Range Interpretation Comments Glucose (test code 95 mg/dl 75-110 = GLU) BUN (test code = 15.0 mg/dl 6.0-17.0 BUN) Creatinine (test 1.2 mg/dl 0.4-1.2 code = CREA) Sodium (test code = 146 mmol/l 137-145 H NA) Potassium (test 4.1 mmol/l 3.5-5.0 code = K) Chloride (test code 105 mmol/l 98-107 = CL) CO2 (test code = 29 mmol/l 22-30 CO2) Calcium (test code 9.7 mg/dl 8.4-10.2 = CALC) EGFR if >60 Iranian (test code mL/min/1.73m\\ = EGFRAA) S\\2 EGFR if Non- >60 Estimate d Glomerular Iranian (test code mL/min/1.73m\\ Filtrat ion Rate (eGFR) = EGFRNA) S\\2 Reference Inter vals Decision Points for 18 years and older and average body ma ss: >= 60 Does not exc lude kidney disease. 30 - 59 Suggests modera te chronic kidney disease and indicat es the need for furthe r investigation including asses sment of proteinuria and cardiovascular factors. < 30 Usually in dicates a need for refe rral for assessment and management of c hronic kidney failure. CBC WITH AUTO [id number] 05:39:00 Test Item Value Reference Range Interpretation Comments WBC (test code = WBC) 13.7 k/ul 4.8-10.8 H RBC (test code = RBC) 4.91 Millions/ul 4.70-6.10 Hemoglobin (test code = HGB) 14.7 gm/dl 14.0-18.0 Hematocrit (test code = HCT) 43.8 % 42.0-50.0 MCV (test code = MCV) 89.0 fL 80.0-94.0 MCH (test code = MCH) 29.8 pg 27.0-31.0 MCHC (test code = MCHC) 33.5 gm/dl 33.0-37.0 RDW (test code = RDWVC) 13.9 % 11.5-14.5 Platelet (test code = PLT) 273 10\\S\\3/ul 130-400 MPV (test code = MPV) 8.7 fL 7.4-10.4 NE% (test code = NE) 57.1 % 42.0-75.0 LY% (test code = LY) 32.5 % 13.0-42.0 MO% (test code = MO) 6.8 % 4.0-14.0 EO% (test code = EO) 2.8 % 1.0-3.0 BA% (test code = BA) 0.8 % 1.0-3.0 L NRBC, Auto (test code = 0 NRBC_AUTO) CBC AUTO diffCBC WITH AUTO [id number] 06:14:00 Test Item Value Reference Range Interpretation Comments WBC (test code = WBC) 12.9 k/ul 4.8-10.8 H RBC (test code = RBC) 4.59 Millions/ul 4.70-6.10 L Hemoglobin (test code = HGB) 13.9 gm/dl 14.0-18.0 L Hematocrit (test code = HCT) 40.5 % 42.0-50.0 L MCV (test code = MCV) 88.3 fL 80.0-94.0 MCH (test code = MCH) 30.3 pg 27.0-31.0 MCHC (test code = MCHC) 34.3 gm/dl 33.0-37.0 RDW (test code = RDWVC) 13.9 % 11.5-14.5 Platelet (test code = PLT) 246 10\\S\\3/ul 130-400 MPV (test code = MPV) 8.9 fL 7.4-10.4 NE% (test code = NE) 52.7 % 42.0-75.0 LY% (test code = LY) 37.7 % 13.0-42.0 MO% (test code = MO) 7.0 % 4.0-14.0 EO% (test code = EO) 1.8 % 1.0-3.0 BA% (test code = BA) 0.8 % 1.0-3.0 L NRBC, Auto (test code = 0 NRBC_AUTO) CBC AUTO diffCORONARY [id number] 06:07:00 Test Item Value Reference Range Interpretation Comments Triglycerides (test 269 mg/dl 0-149 H Trig. In terpretation code = TRIG) Guide: Nor mal: < 150 mg/dl Borderline High : 150 - 199 mg/dl High: 200 - 499 mg/dl Very High: >= 5 00 mg/dl Cholesterol (test code 177 mg/dl 0-198 = CHOL) HDL (test code = HDL) 32 mg/dl 35-86 L dLDL (test code = 108 mg/dl 0-99 H Direct LDL DILDL) Intrepretations : Optimal: <100 mg/dl Suspect: 100 - 129 mg/dl Border line: 130 - 159 mg/dl High: 160 - 189 mg/dl Very High: >1 90 mg/dl Risk Factor (test code 5.5 0.0-5.0 H Risk Factor = RFACT) Men Women R isk Factor 3.4 3.3 1/ 2 Average 5.0 4.4 Average 9.6 7.1 2X Average 24.0 11.0 3X Average vLDL (test code = 54 mg/dl 30-60 VLDL) [id number] 05:58:00 Test Item Value Reference Range Interpretation Comments Glucose (test code 95 mg/dl 75-110 = GLU) BUN (test code = 14.0 mg/dl 6.0-17.0 BUN) Creatinine (test 1.3 mg/dl 0.4-1.2 H code = CREA) Sodium (test code = 144 mmol/l 137-145 NA) Potassium (test 3.7 mmol/l 3.5-5.0 code = K) Chloride (test code 108 mmol/l 98-107 H = CL) CO2 (test code = 24 mmol/l 22-30 CO2) Calcium (test code 9.6 mg/dl 8.4-10.2 = CALC) EGFR if >60 Iranian (test code mL/min/1.73m\\ = EGFRAA) S\\2 EGFR if Non- >60 Estimate d Glomerular Iranian (test code mL/min/1.73m\\ Filtrat ion Rate (eGFR) = EGFRNA) S\\2 Reference Inter vals Decision Points for 18 years and older and average body ma ss: >= 60 Does not exc lude kidney disease. 30 - 59 Suggests modera te chronic kidney disease and indicat es the need for furthe r investigation including asses sment of proteinuria and cardiovascular factors. < 30 Usually in dicates a need for refe rral for assessment and management of c hronic kidney failure. DRUG SCREEN [id number] 15:12:00 Test Item Value Reference Range Interpretation Comments PH (test code = 6.0 UPH) Specific [place] 1.010 (test code = USPGR) FT (test code = Negative AMPHET) (qualifier value) FT (test code = Negative KRISTY) (qualifier value) FT (test code = Negative BENZO) (qualifier value) FT (test code = Negative MARÍA) (qualifier value) FT (test code = Negative MTD) (qualifier value) FT (test code = Negative OPIAT) (qualifier value) FT (test code = Negative The followin g table PCP) (qualifier provides an value) interpretive gu shaniqua for the Drugs of Ab use ran on the [employer] 5 .1 analyzer listed there in: Amp[place] mines < 1000 ng/ml = Negative Barbituates < 200 ng/ml = Negat angela Benzodiazapines < 200 ngml = Negat angela Cocaine < 300 ng/ml = Negat angela Methadone < 300 ng/ml = Negat angela Opiate < 300 ng/ml = Negat angela PCP < 25 ng/ml = Nega tive THC < 50 ng/ml = Negat angela Results equal t o or greater than th e above cut-off values = Presumptive Pos itive. Confirmation of Presumptive Pos itive results are bird ilable upon request. FT (test code = Negative THC) (qualifier value) PT AND [id number] 22:35:00 Test Item Value Reference Range Interpretation Comments Protime (test code 9.8 seconds 9.0-11.9 = PT) INR (test code = 1.0 0.9-1.1 INR results are intended INR) ONLY to monitor Oral Anticoagulant t herapy in stablized pa tients. The INR Therape utic Range is 2.0 - 3.0 Patients with a mechanical hear t, the INR Range is 2. 5 - 3.5 TRA [id number] 22:35:00 Test Item Value Reference Range Interpretation Comments aPTT (test code = PTT) 21.9 seconds 23.0-33.0 L TRA 2TROPONIN-I [id number] 22:28:00 Test Item Value Reference Range Interpretation Comments Troponin-I (test 0.055 ng/ml 0.000-0.034 H The [address] Pe rcentile URL code = TROP) is 0.034 ng/mL. The Joint Society of Cardiology/[facility] [employer] iology (ESC/ACC) and [facility] of Clinical [facility] janine Standards of La boratory Practices (NACB ) recommends that the diagnosis of AM I includes the presence of clinical history suggest angela of Acute Coronary Syndrome (ACS) and a max imum concentration o f cardiac troponin exceed ing the 99th percentile of a normal referenc e population [upp er reference limit (URL)] on at least one oc casion during the firs t 24 hours after the clini mingo event. TRA 2MYOGLOBIN, [id number] 22:28:00 Test Item Value Reference Range Interpretation Comments Myoglobin (test code = CECILY) 44.5 ng/ml 0.0-121.0 TRA [id number] 22:28:00 Test Item Value Reference Range Interpretation Comments CKMB (test code = CKMB) 2.55 ng/ml 0.00-2.37 HH TRA 2 Critical values were called to Jolynn in ER by [id number] on 06/23/2017 22:28 PM. Results were read back by Joylnn in ER.PRO-BNP(B-Type Natriuretic Peptide) 2017-06-23 22:28:00 Test Item Value Reference Range Interpretation Comments Pro-BNP(B-Peptide 436 pg/ml 0-125 H THE METHOD OLOGY FOR ) (test code = DETECTION OF B-NATRIURETIC PROBNP) PEPTIDE HAS BEE N CHANGED TO "NT pro-BNP" . THE NORMAL RANGES HAVE HARINDER NGED. PLEASE NOTE LILLIAN T RANGES ARE DEFINED BY THE AGE OF THE PATIENT. (<75 years old = 0-125 pg/ml 75years and older = 0-450pg /ml). VALUES ARE NOT INTERCHANGEABLE BETWEEN METHODS. 2006 TRA [id number] 22:28:00 Test Item Value Reference Range Interpretation Comments CPK (test code = CPK) 149 U/L 30-135 H TRA 2CBC WITH AUTO [id number] 22:27:00 Test Item Value Reference Range Interpretation Comments WBC (test code = WBC) 13.8 k/ul 4.8-10.8 H RBC (test code = RBC) 4.99 Millions/ul 4.70-6.10 Hemoglobin (test code = HGB) 14.9 gm/dl 14.0-18.0 Hematocrit (test code = HCT) 44.1 % 42.0-50.0 MCV (test code = MCV) 88.3 fL 80.0-94.0 MCH (test code = MCH) 29.9 pg 27.0-31.0 MCHC (test code = MCHC) 33.8 gm/dl 33.0-37.0 RDW (test code = RDWVC) 13.7 % 11.5-14.5 Platelet (test code = PLT) 274 10\\S\\3/ul 130-400 MPV (test code = MPV) 9.3 fL 7.4-10.4 NE% (test code = NE) 51.2 % 42.0-75.0 LY% (test code = LY) 39.1 % 13.0-42.0 MO% (test code = MO) 7.0 % 4.0-14.0 EO% (test code = EO) 2.0 % 1.0-3.0 BA% (test code = BA) 0.7 % 1.0-3.0 L NRBC, Auto (test code = 0 NRBC_AUTO) TRA [id number] 22:14:00 Test Item Value Reference Range Interpretation Comments Glucose (test code 123 mg/dl 75-110 H = GLU) BUN (test code = 14.0 mg/dl 6.0-17.0 BUN) Creatinine (test 1.6 mg/dl 0.4-1.2 H code = CREA) Sodium (test code = 145 mmol/l 137-145 NA) Potassium (test 3.5 mmol/l 3.5-5.0 code = K) Chloride (test code 106 mmol/l 98-107 = CL) CO2 (test code = 26 mmol/l 22-30 CO2) Calcium (test code 9.2 mg/dl 8.4-10.2 = CALC) T Protein (test 7.2 gm/dl 5.1-8.7 code = TP) Albumin (test code 4.2 gm/dl 3.5-4.6 = ALB) A/G Ratio (test 1.4 % 1.1-2.2 code = AGRAT) AST (SGOT) (test 23 U/L 11-36 code = AST) ALT (SGPT) (test 29 U/L 11-40 code = ALT) Alkaline Phos (test 92 U/L 47-114 code = ALKP) Total Bilirubin 0.5 mg/dl 0.2-1.2 (test code = TBIL) Globulin (test code 3.0 gm/dl 2.3-3.5 = GLOBU) Calcium, Corrected 9.0 mg/dl 8.4-10.2 Various f ormulas exist (test code = for corrected s jose CALCCORR) calcium results , each yielding differ ent values. This corrected resul t was based on the fo rmula: Corrected Calci um = SerumCalcium + [0.8 * ( 4 - SerumAlbu min)] EGFR if 58 Iranian (test code mL/min/1.73m\\ = EGFRAA) S\\2 EGFR if Non- 48 Estimate d Glomerular Iranian (test code mL/min/1.73m\\ Filtrat ion Rate (eGFR) = EGFRNA) S\\2 Reference Inter vals Decision Points for 18 years and older and average body ma ss: >= 60 Does not exc lude kidney disease. 30 - 59 Suggests modera te chronic kidney disease and indicat es the need for furthe r investigation including asses sment of proteinuria and cardiovascular factors. < 30 Usually in dicates a need for refe rral for assessment and management of c hronic kidney failure. TRA 2
[2021-04-14 01:40] LABS: Absolute Lymphocytes (CBC) 4.3 K/uL (0.7-4.9); Basophils % 0.3 % (0-1.3); Hematocrit 45.1 % (39.6-49.0); Lymphocytes % 40.8 % (15.3-44.8); RBC Red Blood Cell Count 4.99 M/uL (4.33-5.43)
[2021-04-14 01:45] LABS: Protime INR 0.91
[2021-04-14 02:03] LABS: ALT/SGPT 66 U/L (12-78); AST/SGOT 40 U/L (15-37); Albumin 3.5 g/dL (3.4-5.0); Alkaline Phosphatase 113 U/L (45-117); BUN Blood Urea Nitrogen 10 mg/dL (7-18); Bicarbonate 30 mmol/L (21-32); Bilirubin Direct < 0.1 mg/dL (0-0.2); Bilirubin Total 0.4 mg/dL (0.2-1.0); Glucose Level 110 mg/dL (74-106); NT PRO-BNP 36 pg/mL (<125); Potassium 3.6 mmol/L (3.5-5.1); Protein, Total 7.3 g/dL (6.4-8.2); Sodium Level 137 mmol/L (136-145); Troponin (Emerg Dept Use Only) < 0.02 ng/mL (0.0-0.045)
--- NOTE | 2021-04-14 03:13 | EDPHYS ---
Physician Documentation [facility] Name: Efrain Quezada Age: 61 yrs Sex: Male : 1960 Arrival Date: 04/14/2021 Time: 01:22 Bed 25 Private MD: ED Physician Richard De Guzman HPI: 04/14 01:42 This 61 yrs old Male presents to ER via EMS with complaints of Chest Pain. mh7 01:42 The patient or guardian reports chest pain that is located primarily in the substernal mh7 area. 01:43 Onset: today. The pain does not radiate. Associated signs and symptoms: Pertinent mh7 positives: nausea, shortness of breath, Pertinent negatives: abdominal pain, cough, diaphoresis, dizziness, headache, lower extremity pain, lower extremity swelling, lightheadedness, near syncope, palpitations, recent travel, syncope, vomiting. The chest pain is described as a heaviness. Duration: The patient or guardian reports multiple episodes, that are intermittent, that wax and wane. Modifying factors: The symptoms are alleviated by nothing. the symptoms are aggravated by nothing. Severity of pain: At its worst the pain was moderate today, in the emergency department the pain has improved moderately. Historical: - Allergies: 01:29 PENICILLINS; ea 01:29 Sulfa (Sulfonamide Antibiotics); ea - Home Meds: 01:29 Famotidine Oral [Active]; Hydrochlorothiazide Oral [Active]; lisinopril Oral [Active]; ea Metoprolol Tartrate Oral [Active]; - PMHx: 01:29 Hypertension; CVA; ea - PSHx: 01:29 L hip replacement; ea - Immunization history:: Adult Immunizations up to date. - Social history:: Smoking status: unknown. ROS: 01:43 Constitutional: Negative for fever, chills, and weight loss, Eyes: Negative for injury, mh7 pain, redness, and discharge, ENT: Negative for injury, pain, and discharge, Neck: Negative for injury, pain, and swelling, Back: Negative for injury and pain, : Negative for injury, bleeding, discharge, and swelling, MS/Extremity: Negative for injury and deformity, Skin: Negative for injury, rash, and discoloration, Neuro: Negative for headache, weakness, numbness, tingling, and seizure, Psych: Negative for depression, anxiety, suicide ideation, homicidal ideation, and hallucinations, Allergy/Immunology: Negative for hives, rash, and allergies, Endocrine: Negative for neck swelling, polydipsia, polyuria, polyphagia, and marked weight changes, Hematologic/Lymphatic: Negative for swollen nodes, abnormal bleeding, and unusual bruising. Exam: 01:43 Constitutional: This is a well developed, well nourished patient who is awake, alert, mh7 and in no acute distress. Head/Face: Normocephalic, atraumatic. Eyes: Pupils equal round and reactive to light, extra-ocular motions intact. Lids and lashes normal. Conjunctiva and sclera are non-icteric and not injected. Cornea within normal limits. Periorbital areas with no swelling, redness, or edema. Neck: Trachea midline, no thyromegaly or masses palpated, and no cervical lymphadenopathy. Supple, full range of motion without nuchal rigidity, or vertebral point tenderness. No Meningismus. Chest/axilla: Normal chest wall appearance and motion. Nontender with no deformity. No lesions are appreciated. Cardiovascular: Regular rate and rhythm with a normal S1 and S2. No gallops, murmurs, or rubs. Normal PMI, no JVD. No pulse deficits. Respiratory: Lungs have equal breath sounds bilaterally, clear to auscultation and percussion. No rales, rhonchi or wheezes noted. No increased work of breathing, no retractions or nasal flaring. Abdomen/GI: Soft, non-tender, with normal bowel sounds. No distension or tympany. No guarding or rebound. No evidence of tenderness throughout. Back: No spinal tenderness. No costovertebral tenderness. Full range of motion. Skin: Warm, dry with normal turgor. Normal color with no rashes, no lesions, and no evidence of cellulitis. MS/ Extremity: Pulses equal, no cyanosis. Neurovascular intact. Full, normal range of motion. Neuro: Awake and alert, GCS 15, oriented to person, place, time, and situation. Cranial nerves II-XII grossly intact. Motor strength 5/5 in all extremities. Sensory grossly intact. Cerebellar exam normal. Normal gait. Psych: Awake, alert, with orientation to person, place and time. Behavior, mood, and affect are within normal limits. Vital Signs: 01:22 BP 145 / 93; Pulse 60; Resp 18; Temp 98; Pulse Ox 99% ; Weight 90.72 kg; ea 03:03 BP 134 / 74; Pulse 58; Resp 18; Pulse Ox 98% on R/A; iw 04:48 BP 117 / 58; Pulse 55; Resp 18; Pulse Ox 97% on R/A; ea MDM: 03:10 Differential diagnosis: acute myocardial infarction, acute pericarditis, anxiety, mh7 coronary artery disease chest wall pain, congestive heart failure costochondritis, myocarditis, pericarditis, pneumonia. HEART Score: History: Highly Suspicious (2), ECG: Normal (0), Age: > 45 and < 65 years (1), Risk Factors: 1 or 2 risk factors (1), [Hypertension] Troponin: < or = 1 x Normal Limit (0), Total Score = 4. The patient was given aspirin in the Emergency Department. Data reviewed: vital signs, nurses notes, EMS record, old medical records, lab test result(s), cardiac enzymes, CBC, electrolytes, EKG, radiologic studies, plain films. Data interpreted: Pulse oximetry: on room air is 98 %. Interpretation: normal. Counseling: I had a detailed discussion with the patient and/or guardian regarding: the historical points, exam findings, and any diagnostic results supporting the discharge/admit diagnosis, the presence of at least one elevated blood pressure reading (>120/80) during this emergency department visit, lab results, radiology results, the need for further work-up and treatment in the hospital. Response to treatment: the patient's symptoms have markedly improved after treatment. 03:12 Patient medically screened. [facility] 04/14 01:27 Order name: Basic Metabolic Panel; Complete Time: 02:04/14: Order name: CBC with Diff; Complete Time: :04/14: Order name: LFT's; Complete Time: 02:04/14: Order name: Magnesium; Complete Time: :04/14: Order name: NT PRO-BNP; Complete Time: :04/14: Order name: PT-INR; Complete Time: :04/14: Order name: Troponin (emerg Dept Use Only); Complete Time: 02:04/14 01:27 Order name: XRAY Chest (1 view) 04/14 07:17 Order name: COVID-19 : Document "Date of Symptom Onset" if Symptomatic. 04/14 07:43 Order name: CORONAVIRUS [facility] 04/14 08:23 Order name: SARS-COV-2 RT PCR [facility] 04/14 01:27 Order name: EKG; Complete Time: 01:28 ea 04/14 01:27 Order name: Cardiac monitoring; Complete Time: 04/14 01:27 Order name: EKG - Nurse/Tech; Complete Time: 01:36 ea 04/14 01:27 Order name: IV Saline Lock; Complete Time: ea 04/14 01:27 Order name: Labs collected and sent; Complete Time: 04/14 01:27 Order name: O2 Per Protocol; Complete Time: ea 04/14 01:27 Order name: O2 Sat Monitoring; Complete Time: ea Administered Medications: 01:43 Not Given (Patient Refused): Aspirin Chewable Tablet 324 mg PO once; 81 mg tablets x 4 ea 04:56 Drug: NS 0.9% 500 ml Route: IV; Rate: bolus; Site: right antecubital; ea 04:56 Drug: NS 0.9% 1000 ml Route: IV; Rate: 100 ml/hr; Site: right antecubital; ea Disposition: 04/14/21 03:12 Hospitalization ordered by Arslan Tian for Observation. Preliminary diagnosis is Chest pain, unspecified. - Bed requested for Telemetry/MedSurg (observation). - Status is Observation. aa5 - Condition is Stable. - Problem is new. - Symptoms have improved. Signatures: Dispatcher [employer] EDMD Claudia Guthrie, Tahir Felder RN em1 Susan Grijalva RN RN aa5 Wolfgang Ferro, RETAIL MARKETING EXECUTIVE-C RETAIL MARKETING EXECUTIVE-Cla1 Alondra Mcgarry RN RN ea Holmes, Maurice, MD MD mh7 Corrections: (The following items were deleted from the chart) 04:39 03:12 Hospitalization Ordered by Arslan Tian MD for Observation. Preliminary diagnosis is Chest pain, unspecified. Bed requested for Telemetry/MedSurg (observation). Status is Observation. Condition is Stable. Problem is new. Symptoms have improved. mh7 08:31 04:39 04/14/2021 03:12 Hospitalization Ordered by Arslan Tian MD for Observation. em1 Preliminary diagnosis is Chest pain, unspecified. Bed requested for [facility] ER HOLD. Status is Observation. Condition is Stable. Problem is new. Symptoms have improved. iw 10:07 08:31 04/14/2021 03:12 Hospitalization Ordered by Arslan Tian MD for Observation. aa5 Preliminary diagnosis is Chest pain, unspecified. Bed requested for Telemetry/MedSurg (observation). Status is Observation. Condition is Stable. Problem is new. Symptoms have improved. em1
--- NOTE | 2021-04-14 03:13 | ER ---
Nurse's Notes [facility] Name: Efrain Quezada Age: 61 yrs Sex: Male : 1960 Arrival Date: 04/14/2021 Time: : Bed 25 Private MD: Diagnosis: Chest pain, unspecified Presentation: 04/14 01:22 Chief complaint: EMS states: Pt reported chest pressure that started after having an ea argument with his girlfriend. Pt reports pain is 3/10. EMS reports sinus rhythm on EKG strip. 20 G initiated to left AC. Coronavirus screen: At this time, the client does not indicate any symptoms associated with coronavirus-19. Ebola Screen: No symptoms or risks identified at this time. Initial Sepsis Screen: Does the patient meet any 2 criteria? No. Patient's initial sepsis screen is negative. Does the patient have a suspected source of infection? No. Patient's initial sepsis screen is negative. Risk Assessment: Do you want to hurt yourself or someone else? Patient reports no desire to harm self or others. Onset of symptoms was April 14, 2021. : Method Of Arrival: EMS: [facility] ea : Acuity: OVI 3 ea Historical: - Allergies: :29 PENICILLINS; ea : Sulfa (Sulfonamide Antibiotics); ea - Home Meds: 01:29 Famotidine Oral [Active]; Hydrochlorothiazide Oral [Active]; lisinopril Oral [Active]; ea Metoprolol Tartrate Oral [Active]; - PMHx: 01:29 Hypertension; CVA; ea - PSHx: 01:29 L hip replacement; ea - Immunization history:: Adult Immunizations up to date. - Social history:: Smoking status: unknown. Screenin:26 Abuse screen: Denies threats or abuse. Nutritional screening: No deficits noted. ea Tuberculosis screening: No symptoms or risk factors identified. Fall Risk None identified. Assessment: 01:32 General: Appears in no apparent distress. Behavior is calm, cooperative, appropriate ea for age. Pain: Denies pain. Unable to use pain scale. pt states "it is not pain it is more pressure on the left side of my chest". Neuro: Level of Consciousness is awake, alert, obeys commands, Oriented to person, place, time. Cardiovascular: Reports chest pressure and shortness of breath. Derm: Skin is pink, warm \\T\\ dry. 03:03 Reassessment: Patient and/or family updated on plan of care and expected duration. Pain iw level reassessed. Patient is alert, oriented x 3, equal unlabored respirations, skin warm/dry/pink. 04:49 Reassessment: Patient and/or family updated on plan of care and expected duration. Pain ea level reassessed. Pt resting with eyes closed, respirations even and unlabored. Chest expansions even and symmetrical. Vital Signs: 01:22 BP 145 / 93; Pulse 60; Resp 18; Temp 98; Pulse Ox 99% ; Weight 90.72 kg; ea 03:03 BP 134 / 74; Pulse 58; Resp 18; Pulse Ox 98% on R/A; iw 04:48 BP 117 / 58; Pulse 55; Resp 18; Pulse Ox 97% on R/A; ea ED Course: 01:22 Patient arrived in ED. ea 01:26 Triage completed. ea 01:26 Patient has correct armband on for positive identification. Placed in gown. Bed in low ea position. Call light in reach. monitoring manager on. Pulse ox on. NIBP on. 01:26 Arm band placed on right wrist. Patient placed in an exam room, on a stretcher, on ea classroom monitor, on pulse oximetry. 01:26 Maintain EMS IV. Dressing intact. Good blood return noted. Site clean \\T\\ dry. Gauge \\T\\ ea site: 20 G RAC. Patient maintains SpO2 saturation greater than 95% on room air. 01:34 Richard De Guzman MD is Attending Physician. [facility] 01:52 XRAY Chest (1 view) In Process Unspecified. EDMS 02:18 Alondra Mcgarry, EMMA is Primary Nurse. ea 03:03 No provider procedures requiring assistance completed. Patient admitted, IV remains in iw place. 03:12 Arslan Tian MD is Hospitalizing Provider. mh7 Administered Medications: 01:43 Not Given (Patient Refused): Aspirin Chewable Tablet 324 mg PO once; 81 mg tablets x 4 ea 04:56 Drug: NS 0.9% 500 ml Route: IV; Rate: bolus; Site: right antecubital; ea 04:56 Drug: NS 0.9% 1000 ml Route: IV; Rate: 100 ml/hr; Site: right antecubital; ea Outcome: 03:12 Decision to Hospitalize by Provider. mh7 04:48 Admitted to ER Hold. Please see [facility] for further documentation. augustine 04:48 Condition: stable 04:48 Instructed on the need for admit, Demonstrated understanding of instructions. 10:07 Patient left the ED. aa5 Signatures: Dispatcher [employer] Claudia Moyer RN RN iw Calderon, Audri, RN RN 5 Alondra Mcgarry RN RN ea Holmes, Maurice, MD MD 7
--- NOTE | 2021-04-14 04:36 | P.HP ---
Certification for Inpatient Patient admitted to: Observation With expected LOS: <2 Midnights Patient will require the following post-hospital care: None Practitioner: I am a practitioner with admitting privileges, knowledge of patient current condition, hospital course, and medical plan of care. Services: Services provided to patient in accordance with Admission requirements found in Title 42 Section 412.3 of the Code of Federal Regulations Patient History Date of Service: 04/14/21 Reason for admission: Chest pain History of Present Illness: 61-year-old male with history of hypertension, CVA presents emergency department for chest pain. Patient reports pain to the anterior chest wall described as somebody sitting on his chest with associated shortness of breath after having an argument with his significant other, pain has improved to some degree at this time, denies similar symptoms in the past. Labs significant for creatinine 1.37 GFR 53, no labs available for comparison. Initial troponin negative, EKG without acute changes, x-ray unremarkable. ED provider wishes to admit for chest pain rule out. - Past Medical/Surgical History -: Hypertension -: CVA 2017 no residual deficits -: Left hip surgery -: Hernia repair Psychosocial/ Personal History: Patient lives with friend - Family History Mother -: Heart disease, Diabetes Father -: Diabetes, Cancer - Social History Smoking Status: Former smoker Alcohol use: No CD- Drugs: No Caffeine use: Yes Place of Residence: Home Review of Systems 10-point ROS is otherwise unremarkable Respiratory: Shortness of Breath Cardiovascular: Chest Pain, As per HPI Physical Examination - Physical Exam General: Alert, In no apparent distress HEENT: Atraumatic, PERRLA, Mucous membr. moist/pink Neck: Supple, 2+ carotid pulse no bruit, No LAD Respiratory: Clear to auscultation bilaterally, Normal air movement Cardiovascular: Regular rate/rhythm, Normal S1 S2 Gastrointestinal: Normal bowel sounds, No tenderness Musculoskeletal: No tenderness Integumentary: No rashes Neurological: Normal speech, Normal strength at 5/5 x4 extr, Normal tone, Normal affect - Studies Laboratory Data (last 24 hrs) 04/14/21 01:30: PT 10.5, INR 0.91 04/14/21 01:30: WBC 10.60, Hgb 15.2, Hct 45.1, Plt Count 287 04/14/21 01:30: Sodium 137, Potassium 3.6, BUN 10, Creatinine 1.37 H, Glucose 110 H, Magnesium 2.0, Total Bilirubin 0.4, AST 40 H, ALT 66, Alkaline Phosphatase 113 Assessment and Plan - Plan Assessment Chest pain rule out ACS Renal insufficiency Hypertension History of CVA Plan Chest pain rule out ACS: Trend troponins, monitor on telemetry, lipid and thyroid panel with next set of troponins. Monitor on telemetry. Cardiology consult in place. DVT prophylaxis Lovenox 40 mg subcu twice daily. Continue with daily aspirin, statin, beta-richard therapy. Renal insufficiency: No labs available for comparison, no known history of renal disease. Will obtain renal ultrasound, continue with IV fluids, recheck renal function in the afternoon. Hypertension: Continue home meds, patient takes lisinopril and hydrochlorothiazide this may be contributing to renal insufficiency, may need to adjust medications. History of CVA: Continue home medications. Stable. Discharge Plan: Home Plan to discharge in: 24 Hours - Advance Directives Does patient have a Living Will: No Does patient have a Durable POA for Healthcare: No - Code Status/Comfort Care Code Status Assessed: Yes (Full code) Critical Care: No Time Spent Managing Pts Care (In Minutes): 55
[2021-04-14] MEDS ORDERED: NA CHLORIDE 0.9% 1,000 ML ONE (05:13)
[2021-04-14 06:04] VITALS: BMI 31.4
[2021-04-14] MEDS: NA CHLORIDE 0.9% 1,000 ML IV SCH ×2 (06:12→16:12)
[2021-04-14] MEDS ORDERED: ONDANSETRON 4 MG/2 ML VIAL IV PRN (06:12)
--- NOTE | 2021-04-14 07:53 | RAD REPORT ---
EXAM DESCRIPTION: Romeo Single View04/14/2021 1:53 am CLINICAL HISTORY: Chest pain COMPARISON: none FINDINGS: The lungs appear clear of acute infiltrate. The heart is normal size IMPRESSION: No acute abnormalities displayed
[2021-04-14] MEDS ORDERED: ENOXAPARIN 40 MG/0.4 ML SQ ONE (08:36)
[2021-04-14] MEDS ORDERED: ASPIRIN EC 81 MG TAB PO ONE (08:36)
[2021-04-14] MEDS ORDERED: METOPROLOL TAR 50 MG TAB ONE (08:36)
[2021-04-14] MEDS ORDERED: ENOXAPARIN 40 MG/0.4 ML SQ SCH (09:00)
[2021-04-14] MEDS ORDERED: METOPROLOL TAR 50 MG TAB PO SCH (09:00)
[2021-04-14] MEDS ORDERED: ASPIRIN EC 81 MG TAB PO SCH (09:00)
[2021-04-14] MEDS ORDERED: POTASSIUM CL SA 10 MEQ TAB PO ONE ×2 (09:00→09:42)
[2021-04-14 09:12] VITALS: O2SAT 97
[2021-04-14 12:57] LABS: ALT/SGPT 62 U/L (12-78); AST/SGOT 29 U/L (15-37); Albumin 3.5 g/dL (3.4-5.0); Alkaline Phosphatase 111 U/L (45-117); BUN Blood Urea Nitrogen 9 mg/dL (7-18); Bicarbonate 29 mmol/L (21-32); Bilirubin Total 0.4 mg/dL (0.2-1.0); Glucose Level 123 mg/dL (74-106); Potassium 3.5 mmol/L (3.5-5.1); Protein, Total 6.9 g/dL (6.4-8.2); Sodium Level 139 mmol/L (136-145); Troponin I < 0.02 ng/mL (0.0-0.045)
[2021-04-14 13:06] LABS: HDL Cholesterol 29 mg/dL (40-60)
[2021-04-14 13:16] LABS: LDL, Direct 74 mg/dL (100-129)
[2021-04-14 16:12] VITALS: BP 136/83; TEMP 98.2
--- NOTE | 2021-04-14 17:23 | P.DS ---
Admission Date: 04/14/21 Discharge Date: 04/14/21 Disposition: ROUTINE DISCHARGE Discharge Condition: GOOD Reason for Admission: Chest pain Consultations: Cardiology - Dr. Killian Procedures: CXR (04/14): lungs appear clear of acute infiltrate. Heart is normal size. Chest pain rule out ACS Renal insufficiency Hypertension History of CVA Brief History of Present Illness: 61-year-old male with history of hypertension, CVA presents emergency department for chest pain. Patient reports pain to the anterior chest wall described as somebody sitting on his chest with associated shortness of breath after having an argument with his significant other, pain has improved to some degree at this time, denies similar symptoms in the past. Labs significant for creatinine 1.37 GFR 53, no labs available for comparison. Initial troponin negative, EKG without acute changes, x-ray unremarkable. ED provider wishes to admit for chest pain rule out. Hospital Course: EKG without ischemic changes. Troponin remained negative. Patient remained asymptomatic. Cardiology was consulted and felt patient was ok to discharge home, to follow up in office for outpatient stress testing. Resume home medications, except advised to hold HCTZ, his BP remained WNL, low- normal at times during his hospitalization without any anti-hypertensives. His creatinine was 1.3 on admission and down to 1.2 after gentle IVF hydration. He did report being told previously that he had some renal disease but that it wasn't "too bad". Follow up with Cardiology for stress testing Follow up with PCP in 3-5 days. Vital Signs/Physical Exam: Physical Exam General: Alert, In no apparent distress, obese HEENT: PERRL, Mucous membr. moist/pink Respiratory: Clear to auscultation bilaterally, Normal air movement Cardiovascular: Regular rate/rhythm, Normal S1 S2 Gastrointestinal: soft, non-distended, No tenderness Musculoskeletal: No tenderness Integumentary: No rashes Neurological: Normal speech, Normal strength at 5/5 x4 extr, Normal tone, Normal affect Temp Pulse Resp BP Pulse Ox 98.2 F 61 18 136/83 97 04/14/21 16:00 04/14/21 16:00 04/14/21 16:00 04/14/21 16:00 04/14/21 16:00 Laboratory Data at Discharge: WBC 10.60 K/uL (4.3-10.9) 04/14/21 01:30 Hgb 15.2 g/dL (13.6-17.9) 04/14/21 01:30 Hct 45.1 % (39.6-49.0) 04/14/21 01:30 Plt Count 287 K/uL (152-406) 04/14/21 01:30 PT 10.5 SECONDS (9.5-12.5) 04/14/21 01:30 INR 0.91 04/14/21 01:30 Sodium 139 mmol/L (136-145) 04/14/21 12:27 Potassium 3.5 mmol/L (3.5-5.1) 04/14/21 12:27 BUN 9 mg/dL (7-18) 04/14/21 12:27 Creatinine 1.29 mg/dL (0.55-1.3) 04/14/21 12:27 Glucose 123 mg/dL (74-106) H 04/14/21 12:27 Magnesium 2.0 mg/dL (1.8-2.4) 04/14/21 01:30 Total Bilirubin 0.4 mg/dL (0.2-1.0) 04/14/21 12:27 AST 29 U/L (15-37) 04/14/21 12:27 ALT 62 U/L (12-78) 04/14/21 12:27 Alkaline Phosphatase 111 U/L (45-117) 04/14/21 12:27 Troponin I < 0.02 ng/mL (0.0-0.045) 04/14/21 12:27 Troponin I Cancelled 04/14/21 12:27 Triglycerides 475 mg/dL (<150) H 04/14/21 12:27 Cholesterol 153 mg/dL (<200) 04/14/21 12:27 LDL Cholesterol Direct 74 mg/dL (100-129) L 04/14/21 12:27 HDL Cholesterol 29 mg/dL (40-60) L 04/14/21 12:27 Cholesterol/HDL Ratio 5.28 04/14/21 12:27 Home Medications: Bupropion *Xl* [Wellbutrin XL*] 1 tab PO DAILY 04/14/21 Esomeprazole Magnesium 1 pkt PO DAILY 04/14/21 Lisinopril [Zestril] 1 tab PO DAILY 05/15/21 Metoprolol Succinate [Toprol Xl*] 50 mg PO DAILY 04/14/21 hydroCHLOROthiazide [Hydrochlorothiazide] 1 tab PO DAILY 04/14/21 Physician Discharge Instructions: Your chest pain was evaluated by EKG and troponins (cardiac enzyme) which were normal and did not indicate heart damage / heart attack. Recommend following up with Cardiology - Dr. Killian in the next 1-2 weeks. Call his office to schedule outpatient stress test to further evaluate your heart. You were found to have mild renal insufficiency which improved with some rehydration. Recommend holding your hydrochlorothiazide until you follow up with your PCP in 3-5 days, or Cardiology. 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
--- NOTE | 2021-04-14 20:08 | CON ---
Date of Consultation: 04/14/2021 Reason For Consultation: Chest pain. History Of Present Illness: A 61-year-old male, lying down in bed, had an episode of chest pressure, no radiation, had slight nausea and lasted about 15-20 minutes and resolved, and since has been in [facility] no further chest pain. He denies having any history of coronary artery disease active an d does not have any exertional chest pain. He follows up with Dr. Escobar. Last stress test was a y ear and a half ago, was negative; had recent echo, was negative. Completely asymptomatic at the pres ent time. Past Medical History: Hypertension, CVA. Medications: Refer to reconciliation sheet for detailed list. Allergies: SULFA AND PENICILLIN. Past Surgical History: Hip surgery. Social History: He is an ex-smoker, quit about 2 months ago. He has smoked a pack per day. Does no t drink or use any drugs. Review of Systems: All systems reviewed and they are negative except for what is mentioned in the HPI. Physical Examination: Vital Signs: Temperature is 98.1, pulse 61, breathing 19, blood pressure 130/59, saturating 98%. General: Pleasant middle-aged male, in no distress. Head and Neck: Pupils are equal, reactive to light. Intact eye movements. No JVD. No cervical lym phadenopathy. Neck: Supple. Thyroid is not enlarged. Lungs: Clear to auscultation bilaterally. No rhonchi, rales, or crackles. No accessory muscle use. Heart: Regular rate and rhythm. No extra sounds. Abdomen: Soft, nontender. Bowel sounds positive. No organomegaly. No masses or hernia. No rigidi ty or rebound. Extremities: No edema, clubbing, or cyanosis. Intact pulses. Skin: No rash noted. Neurologic: Alert, awake, oriented x3. No acute focal deficits appreciated. Investigations: Labs are reviewed. EKG is negative. Creatinine 1.29. Assessment And Recommendations: Chest pain, has some typical feature; however, it is nonexertional. Troponins have been negative. The patient continues to be chest pain free, especially with ambulati on, can be released, and follow up as an outpatient for exercise nuclear stress test. The patient wa s instructed to return to the emergency room with any further chest pain and started on baby aspirin 81 mg daily. SR/MODL Voice ID: [id number] Report ID: [id number]
[2021-04-14] MEDS ORDERED: ATORVASTATIN 40 MG TAB PO SCH (21:00)
== END 2021-04-14 17:13 | disposition home or self-care (01) ==
LOC: ER 01:10 → ERHOLD 04:45 → 2ND 09:54
PROVIDERS: ADMIT Hospitalist; ATTEND Hospitalist
DX: R07.9 Chest pain, unspecified (principal); N28.9 Disorder of kidney and ureter, unspecified; I10 Essential (primary) hypertension; Z20.822 Contact with and (suspected) exposure to COVID-19; Z87.891 Personal history of nicotine dependence; Z86.73 Personal history of transient ischemic attack (TIA), and cerebral infarction without residual deficits; Z88.0 Allergy status to penicillin; Z88.2 Allergy status to sulfonamides; Z82.49 Family history of ischemic heart disease and other diseases of the circulatory system; Z83.3 Family history of diabetes mellitus; Z80.9 Family history of malignant neoplasm, unspecified
CPT/HCPCS: 93005; 85025; 80048; 36415; 83721; 83735; 85610; 80061; 80076; 84443; 84484 ×2; 84439; 80053; 83880; 71045; 99285; U0003; J7030; G0378 ×2; J1650